=== PATIENT | female | born 1995 | race Caucasian/White ===

== ENCOUNTER 2023-02-01 12:51 | Emergency (ER) | payer OTHER, SELFPAY ==
--- NOTE | 2023-02-01 13:08 | ED.URI ---
HPI - URI/Sore Throat General Chief Complaint: Upper Respiratory Infection Stated Complaint: COLD SYMPTOMS/SOB/TIRED/NEEDS DOCTORS NOTE Time Seen by Provider: 02/01/23 13:08 Source: patient Mode of arrival: ambulatory Limitations: no limitations History of Present Illness HPI Narrative: 27-year-old female presents with complaint of nasal congestion, cough, headache, fatigue, low-grade fever for the past 3 days. Afebrile today. States she went back to work and felt fatigued, when did and dizzy when bending over. No dizziness at this time. States she has taken 2 days of work and feels that she needs more days off for her health but her work told her she needed a work note if she was going to miss more days. Patient well-appearing and talkative. No respiratory distress. Taking [id number] DayQuil to treat her symptoms. Patient had negative home COVID test. All systems reviewed and negative except as noted above. Related Data Home Medications Medication Instructions Recorded Confirmed amitriptyline 10 mg tablet 10 mg PO DAILY 02/01/23 02/01/23 escitalopram oxalate 5 mg tablet 5 mg PO DAILY 02/01/23 02/01/23 magnesium oxide 250 mg PO DAILY 02/01/23 02/01/23 sumatriptan succinate 50 mg tablet 50 mg PO PRN PRN Headache 02/01/23 02/01/23 Allergies Allergy/AdvReac Type Severity Reaction Status Date / Time Sulfa (Sulfonamide Allergy Rash Verified 02/01/23 13:11 Antibiotics) metronidazole AdvReac Gastrointestinal Verified 02/01/23 13:11 Upset Review of Systems Review of Systems: CONSTITUTIONAL: Denies fever, chills, or sweats. EYES: Denies visual changes, redness, or discharge. ENT: Reports rhinorrhea, congestion. Denies sore throat, or otalgia. CARDIOVASCULAR: Denies chest pain, palpitations, or edema. RESPIRATORY: Reports cough. Denies dyspnea. GASTROINTESTINAL: Denies abdominal pain, nausea, vomiting, or diarrhea. GENITOURINARY: Denies dysuria or hematuria. SKIN: Denies rash or itching. MUSCULOSKELETAL: Denies back pain, joint pain, or myalgia. NEUROLOGIC: Denies headache, numbness, or weakness. PSYCHIATRIC: Denies anxiety or depression. All other systems reviewed are negative, except as documented in HPI. PMFSH Comments At time of signature, agree with nursing past medical, surgical, social and family history. There is no relevant family history pertinent to the presenting complaint. Exam Narrative: GENERAL: This is a well-nourished, well-developed patient, in no apparent distress. HEAD: normocephalic, atraumatic. EYES: PERRL. Sclera clear/white. Vision is grossly intact. EARS: External ears normal, auditory canals clear and without drainage, TMs normal without perforation. Hearing grossly intact. NOSE: External nose normal with clear nasal drainage, erythema to both nares without swelling. THROAT: Mucous membranes moist, posterior pharynx clear. NECK: Neck supple, non-tender without lymphadenopathy, masses or thyromegaly. CARDIOVASCULAR: Regular rate and rhythm without murmurs, gallops, or rubs. RESPIRATORY: Clear to auscultation. Breath sounds equal bilaterally. No wheezes, rales, or rhonchi. SKIN: warm, Dry, intact with no suspicious lesions or rash, good texture and turgor. NEURO: awake, alert, and oriented to person, place and time. There were no obvious focal neurologic abnormalities. EXTREMITIES: No joint tenderness, effusion, or edema noted. Course Course Level of Care: Express Care Visit Vital Signs Vital signs: Reviewed MDM - URI/Sore Throat MDM Narrative Medical decision making narrative: Patient is aware of diagnosis, understands and agrees to treatment plan. Anticipatory guidance given. Patient agrees to follow-up as directed and is aware of reasons to seek care at the emergency department. Portions of this record may have been created with voice recognition software Differential Diagnosis Differential diagnosis: Likely upper respiratory infection and viral infe
[2023-02-01 13:10] VITALS: BP 110/79; PULSE 68; RESP 16; TEMP 36.7; O2SAT 100
== END 2023-02-01 13:20 | disposition home or self-care (01) ==
PROVIDERS: Emergency Provider Nurse Practitioner Family; PCP Internal Medicine
DX: J06.9 Acute upper respiratory infection, unspecified (principal); Q79.60 Ehlers-Danlos syndrome, unspecified; F41.9 Anxiety disorder, unspecified
CPT/HCPCS: 99211; G0463

== ENCOUNTER 2023-06-08 09:45 | Outpatient (CLI) | payer OTHER, SELFPAY ==
--- NOTE | ~2023-06-08 | US_ITS ---
EXAMINATION: US breast LT limited HISTORY: Left nipple inversion TECHNIQUE: Limited ultrasound is performed in the subareolar aspect of the left breast. FINDINGS: No suspicious cystic or solid mass is identified. No sonographic correlate is seen for the patient's left nipple inversion. IMPRESSION: No specific sonographic correlate is identified for the patient's left nipple inversion. Further eval uation at this time should be based on clinical assessment. Continued follow-up physical examination is recommended. BI-RADS Category 1: Negative Reviewed, dictated and finalized at location A. RVISOR TUMBLING AND ROLLING IMPRESSION: No specific sonographic correlate is identified for the patient's left nipple i nversion. Further evaluation at this time should be based on clinical assessmen t. Continued follow-up physical examination is recommended. BI-RADS Category 1: Negative
== END 2023-06-08 09:46 | disposition home or self-care (01) ==
LOC: ANHIMG 09:46
PROVIDERS: PCP Internal Medicine; Visit Provider Physician Assistant Surgical
DX: N64.59 Other signs and symptoms in breast (principal)
CPT/HCPCS: 76642

== ENCOUNTER 2023-06-09 06:59 | Outpatient (CLI) | payer OTHER, SELFPAY | END 2023-06-09 07:00 | disposition home or self-care (01) | PROVIDERS: PCP Internal Medicine; Visit Provider Internal Medicine | DX: R51.9 Headache, unspecified (principal); H55.00 Unspecified nystagmus | CPT/HCPCS: 99199 ==

== ENCOUNTER 2023-06-21 06:50 | Outpatient (CLI) | payer OTHER, SELFPAY ==
--- NOTE | ~2023-06-21 | MR_ITS ---
MRI of the brain Clinical History: Headache Technique: Axial and sagittal T1-weighted images were acquired. These were followed by axial T2-weigh mendez, diffusion weighted, gradient, and FLAIR images. Findings: No abnormal signal seen in the brain parenchyma. No acute infarct, intracranial hemorrhage, or mass lesion. Ventricles and subarachnoid spaces are unremarkable. Orbits are unremarkable. Paranasal sinuses and m astoid air cells are clear. Major intracranial flow voids appear to be intact. Sagittal midline structures are intact. IMPRESSION: No significant abnormality seen. Reviewed, dictated and finalized at location M. CAL BILLING MANAGER
== END 2023-06-21 06:51 | disposition home or self-care (01) ==
LOC: CHSIMG 06:51
PROVIDERS: PCP Internal Medicine; Visit Provider Internal Medicine
DX: R51.9 Headache, unspecified (principal); H55.00 Unspecified nystagmus
CPT/HCPCS: 70551

== ENCOUNTER 2023-08-21 09:47 | Outpatient (CLI) | payer OTHER, SELFPAY ==
--- NOTE | ~2023-08-21 | MR_ITS ---
EXAMINATION: MR breast BI wo/w con INDICATION: Left nipple inversion and intermittent bilateral nipple discharge TECHNIQUE: Axial VIBRANT pre and dynamic post contrast, Sagittal VIBRANT post contrast, Axial T2 STIR ASSET COMPARISON: Left breast ultrasound dated 06/08/2023 CONTRAST: Multihance, 11 cc BREAST COMPOSITION: Extreme fibroglandular tissue FINDINGS: RIGHT BREAST: There is marked background parenchymal enhancement. No abnormal enhancement is present after contrast administration. No pathologically enlarged axillary or internal mammary lymph nodes ar e identified. No MRI correlate is identified for the patient's reported nipple discharge. LEFT BREAST: There is marked background parenchymal enhancement. No abnormal enhancement is present a fter contrast administration. No pathologically enlarged axillary or internal mammary lymph nodes are identified. No MRI correlate is identified for the patient's reported nipple discharge. IMPRESSION: 1. No MRI correlate is identified for the patient's reported nipple discharge. BI-RADS Category 1: Negative Reviewed, dictated and finalized at location A. EMS SECURITY CONSULTANT
== END 2023-08-21 09:48 | disposition home or self-care (01) ==
LOC: ANHIMG 09:48
PROVIDERS: PCP Internal Medicine; Visit Provider Surgery
DX: N64.59 Other signs and symptoms in breast (principal); N64.52 Nipple discharge
CPT/HCPCS: 77049; A9577; C8908

== ENCOUNTER 2024-10-17 08:21 | Outpatient (CLI) | payer BC, SELFPAY ==
--- NOTE | ~2024-10-17 | US_ITS ---
Limited Abdominal Sonogram: Real-time sonographic imaging of the right upper quadrant was performed. Clinical History: Right upper quadrant pain Findings: The liver appears normal with no evidence of mass lesion or bile duct dilatation. Main por dariel vein demonstrates normal direction of flow. The gallbladder is well distended, and appears normal with no evidence of gallstone or wall thickening. The common bile duct measures 2 mm. The visualize d pancreas, aorta, and IVC are unremarkable. Impression: No significant abnormality seen. Reviewed, dictated and finalized at location M. Impression: No significant abnormality seen.
--- OUTSIDE RECORDS SUMMARY | 2024-10-17 08:31 | XMS_ITS | CCD ---
Author Name Interface, [id number] [place] [address] [facility] [place] [address] Care Team Providers Care Supervisor Mail Carriers Name Role Phone Willie Chamberlain Unavailable Unavailable Reason for Visit Functional Status Date Name Score 01/30/2018 Karnofsky performance status 100 01/29/2015 Karnofsky performance status 100 Medications Date Name Route Dose Frequency Instructions Start Date End Date Status 5 Sumatriptan Oral PO 1.0 TABLET(S ) PRN 5 active Problems Diagnosis Status Date of Diagnosi s Gastroesophageal reflux disease (disorder) Activ e Work-up, hem/onc Active Fatigue (finding) Active Migraine (disorder) Active Anxiety (finding) Active Vitamin D deficiency (disorder) Active Abnormal perimenopausal bleeding (disorder) Acti ve Hypertrophic gastritis (disorder) Inactive Social History Date Name Value Sex Female
--- OUTSIDE RECORDS SUMMARY | 2024-10-17 08:32 | XMS_ITS | Patient Health Record ---
Author Organization [facility] As [employer] [facility] Address [address] [facility] [address] [place] [address] Care Team Providers Care Can Maker Name Role Phone Jasmin NICHOLE, [facility] Primary Care Provider Unavaila brendan Albright Thenrony Unavailable [phone] [place] Yusuf Unavailable [phone] Yuki Bernal Unavailable [phone] Migration, Provider Unavailable Unavailable Allergies Allergen (clinical drug ingredient) Drug/Non Drug Allergy documented on EMR Reaction Allergy Type Onset Date Status Substance with sulfonamide structure and antibacterial mechanism of action (substance) SULFA (SULFONAMIDE ANTIBIOTICS) (uncoded) Unknown Allergy 11/08/2023 Active Results Component Value Reference Range Notes UDT Reviewed date:10/06/2024 11:22:20 AM Interpretation: Performing Lab: Notes/Report: THC N 0 - 50 ng/ml Cocaine N 0 - 300 ng/ml Amphetamine N 0 - 1000 ng/ml Buprenorphine (BUP) N 0 - 10 ng/ml Secobarbital (Bar) N 0 - 300 ng/ml Oxazepam (BZO) N 0 - 300 ng/ml 6-gfunwbyyca-3,3-murrrxgh-8,3-diphenylpyrrolidine (THU P) N 0 - 300 ng/ml Methamphetamine (MET) N 0 - 1000 ng/ml Methylenedioxymethamphetamine (MDMA) N 0 - 500 ng/ml Morphine (MOP 300/[id number]) N 0 - 300 ng/ml Methadone (MTD) N 0 - 300 ng/ml Phencyclidine (PCP) N 0 - 25 ng/ml Nortriptyline (TCA) N 0 - 1000 ng/ml Oxycodone N 0 - 300 ng/ml x N 0 - 300 ng/ml Reason For Referral No Information Medications Medication SIG (Take, Route, Frequency, Duration) Notes Start Date End Date Status hydrOXYzine HCl 25 MG Oral 11/08/2023 Active MAGNESIUM 250 MG ( MAGNESIUM OXIDE) TABLET *Reorder from [employer] for eRx and Interaction Alerts* 11/08/2023 Active Ondansetron 4 MG 1 tablet on the tongue and allow to dissolve Orally Once a day for 30 days As needed Active Amphetamine-Dextroamp hetamine 5 MG 1 tablet Oral Twice a day for 30 days 10/06/2024 Active Amitriptyline HCl 10 MG 1 tablet at bedtime Orally Once a day for 90 days 02/27/2024 Active SUMAtriptan Succinate 50 MG Oral 11/08/2023 Active Escitalopram Oxalate 10 MG 1 tablet Orally Once a day for 90 days Active Social History Tobacco Use: Social History Observation Description Date Details (start date - stop date) Never Smoker NA - NA Sex Assigned At : Social History Observation Description Sex Assigned At Female Tobacco Control (Standard) Question Answer Notes Tobacco use: Nonsmoker Problems Problem Type SNOMED Code ICD Code Onset Dates Problem Status W/U Status Risk Notes Problem Generalized anxiety disorder (02883381) Generalized anxiety disorder (F41.1) Active confirmed Problem Pervasive developmental disorder (disorder) (79600152) Autistic disorder (F84.0) Active confirmed Problem Attention deficit hyperactivity disorder, predominantly inattentive type (55755987) Attention-deficit hyperactivity disorder, predominantly inattentive type (F90.0) Active confirmed Problem Obsessive-compuls jacob disorder (151597782) Obsessive-compuls jacob disorder, unspecified (F42.9) Active confirmed Problem Autism spectrum disorder (86201188) Autism spectrum disorder (F84.0) Active confirmed Problem Recurrent major depressive episodes, moderate (694308414) Recurrent major depressive episodes, moderate (F33.1) Active confirmed Problem Obsessive-compuls jacob disorder (095840721) OCD (obsessive compulsive disorder) (F42.9) Active confirmed Vital Signs Heart Rate 100 /min 10/06/2024 Blood pressure diastolic 71 mm Hg 10/06/2024 Height-cm 167.64 cm 10/06/2024 Weight-kg 54.43 kg 10/06/2024 Height 66.00 in 10/06/2024 Blood pressure systolic 117 mm Hg 10/06/2024 Weight 120 lbs 10/06/2024 BMI 19.37 kg/m2 10/06/2024 Encounters Encounter Location Date Provider Diagnosis [facility] [address] [address] 11/08/2023 Thena Jose Ramon Obsessive-compulsive disorder, unspecified F42.9 ; Attention-deficit hyperactivity disorder, predominantly inattentive type F90.0 and Autistic disorder F84.0 [facility] [address] [address] 11/19/2023 Yusuf Burris Obsessive-compulsive disorder, unspecified F42.9 and Autistic disorder F84.0 [facility] [address] [address] 01/07/2024 Yusuf Burris Anxiety F41.9 and Obsessive-compulsive disorder, unspecified F42.9 [facility] [address] [address] 01/28/2024 Yusuf Burris OCD (obsessive compulsive disorder) F42.9 and Anxiety disorder, unspecified type F41.9 [facility] [address] [address] 02/19/2024 Yusuf Burris Generalized anxiety disorder F41.1 ; OCD (obsessive compulsive disorder) F42.9 and Recurrent major depressive episodes, moderate F33.1 [facility] [address] [address] 02/27/2024 Thena Jose Ramon Obsessive-compulsive disorder, unspecified F42.9 ; Autistic disorder F84.0 ; Attention-deficit hyperactivity disorder, predominantly inattentive type F90.0 and Generalized anxiety disorder F41.1 [facility] [address] [address] 03/13/2024 Yusuf Burris Generalized anxiety disorder F41.1 ; Obsessive-compulsive disorder, unspecified F42.9 and Recurrent major depressive episodes, moderate F33.1 [facility] [address] [address] 04/03/2024 Yusuf Burris Generalized anxiety disorder F41.1 ; Obsessive-compulsive disorder F42.9 and Recurrent major depressive episodes, moderate F33.[address] [facility] [address] [place] [address] 06/26/2024 Thena Jose Ramon Generalized anxiety disorder F41.1 ; Obsessive-compulsive disorder, unspecified F42.9 ; Autism spectrum disorder F84.0 ; Attention-deficit hyperactivity disorder, predominantly inattentive type F90.0 and Recurrent major depressive episodes, moderate F33.[address] [address] 08/26/2024 Yusuf Burris Generalized anxiety disorder F41.1 ; Obsessive-compulsive disorder F42.9 and Recurrent major depressive episodes, moderate F33.[address] [address] 10/06/2024 Yuki Bernal OCD (obsessive compulsive disorder) F42.9 ; Attention-deficit hyperactivity disorder, predominantly inattentive type F90.0 ; Recurrent major depressive episodes, moderate F33.1 ; Encounter for screening for depression Z13.31 ; Generalized anxiety disorder F41.1 ; Nausea R11.0 and Encounter for screening for cardiovascular disorders Z13.[address] [address] 11/24/2023 Provider Migration [address] [address] 11/25/2023 Provider Migration [address] [address] 02/18/2024 Yuki Bernal [place] [address] [address] [facility] [address] [address] 04/04/2024 Thena Jose Ramon Obsessive-compulsive disorder, unspecified F42.[address] [address] 12/18/2023 Thena Jose Ramon Assessments Encounter Date Diagnosis (ICD Code) Assessment Notes Treatment Notes Treatment Clinical Notes Section Notes 02/27/2024 Obsessive-compul sive disorder, unspecified (ICD-10 - F42.9) 06/26/2024 Generalized anxiety disorder (ICD-10 - F41.1) 06/26/2024 Obsessive-compul sive disorder, unspecified (ICD-10 - F42.9) 04/03/2024 Generalized anxiety disorder (ICD-10 - F41.1) 27 year old single never female seen today for initial assessment to start therapy. Client has seen Dr Albright twice for medication therapy. Noted that she has a hx of anxiety and was recently diagnosed with Autism and ADHD. Believes she has suffered from anxiety for as long as she can recall but diagnosed at the age of 19. Client when asked what she worries the most about stated; my future in general, will I be able to work in this economy, and my health . Hx of panic attacks denied by client who stated that she also has a hx of mild recurrent depression which she believes is a result of anxiety and Autism. Noted that she has a hx of meltdowns during which time she hits self. Depression symptoms include; lack of motivation to do things, feeling like a failure, passive suicidal thoughts(plan and intent denied). Stated she last had thoughts 6 months ago before she started taking Lexapro. No psych admissions reported but added she has been to out patient psychotherapy(E MDR) at the age of 22 for 9 months. Believes therapy was very helpful in the past. Family hx is positive for depression(moth er) and Schizophrenia(m aternal uncle).Client was born in [place], [place] and grew in that area until the age of 13. Moved and lived in this area from the ages of 13 to 19. Moved to [place] to attend college and returned to this area afte college. Described childhood as unstable and disrupted by parent's divorce when she was 13 years old. Client added that she was an introvert and an only child. Noted that parents due to mother having had an affair and being emotionally unstable. Relationship with mother is close in spite of how mother treated her growing up. Relationship with father has gotten better the older father has become. 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 04/03/2024 Obsessive-compul sive disorder (ICD-10 - F42.9) 27 year old single never female seen today for initial assessment to start therapy. Client has seen Dr Albright twice for medication therapy. Noted that she has a hx of anxiety and was recently diagnosed with Autism and ADHD. Believes she has suffered from anxiety for as long as she can recall but diagnosed at the age of 19. Client when asked what she worries the most about stated; my future in general, will I be able to work in this economy, and my health . Hx of panic attacks denied by client who stated that she also has a hx of mild recurrent depression which she believes is a result of anxiety and Autism. Noted that she has a hx of meltdowns during which time she hits self. Depression symptoms include; lack of motivation to do things, feeling like a failure, passive suicidal thoughts(plan and intent denied). Stated she last had thoughts 6 months ago before she started taking Lexapro. No psych admissions reported but added she has been to out patient psychotherapy(E MDR) at the age of 22 for 9 months. Believes therapy was very helpful in the past. Family hx is positive for depression(carlee er) and Schizophrenia(m aternal uncle).Client was born in [place], [place] and grew in that area until the age of 13. Moved and lived in this area from the ages of 13 to 19. Moved to [place] to attend college and returned to this area afte college. Described childhood as unstable and disrupted by parent's divorce when she was 13 years old. Client added that she was an introvert and an only child. Noted that parents due to mother having had an affair and being emotionally unstable. Relationship with mother is close in spite of how mother treated her growing up. Relationship with father has gotten better the older father has become. 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 03/13/2024 Generalized anxiety disorder (ICD-10 - F41.1) 27 year old single never female seen today for initial assessment to start therapy. Client has seen Dr Albright twice for medication therapy. Noted that she has a hx of anxiety and was recently diagnosed with Autism and ADHD. Believes she has suffered from anxiety for as long as she can recall but diagnosed at the age of 19. Client when asked what she worries the most about stated; my future in general, will I be able to work in this economy, and my health . Hx of panic attacks denied by client who stated that she also has a hx of mild recurrent depression which she believes is a result of anxiety and Autism. Noted that she has a hx of meltdowns during which time she hits self. Depression symptoms include; lack of motivation to do things, feeling like a failure, passive suicidal thoughts(plan and intent denied). Stated she last had thoughts 6 months ago before she started taking Lexapro. No psych admissions reported but added she has been to out patient psychotherapy(E MDR) at the age of 22 for 9 months. Believes therapy was very helpful in the past. Family hx is positive for depression(moth er) and Schizophrenia(m aternal uncle).Client was born in [place], [place] and grew in that area until the age of 13. Moved and lived in this area from the ages of 13 to 19. Moved to [place] to attend college and returned to this area afte college. Described childhood as unstable and disrupted by parent's divorce when she was 13 years old. Client added that she was an introvert and an only child. Noted that parents due to mother having had an affair and being emotionally unstable. Relationship with mother is close in spite of how mother treated her growing up. Relationship with father has gotten better the older father has become. 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 03/13/2024 Obsessive-compul sive disorder, unspecified (ICD-10 - F42.9) 27 year old single never female seen today for initial assessment to start therapy. Client has seen Dr Albright twice for medication therapy. Noted that she has a hx of anxiety and was recently diagnosed with Autism and ADHD. Believes she has suffered from anxiety for as long as she can recall but diagnosed at the age of 19. Client when asked what she worries the most about stated; my future in general, will I be able to work in this economy, and my health . Hx of panic attacks denied by client who stated that she also has a hx of mild recurrent depression which she believes is a result of anxiety and Autism. Noted that she has a hx of meltdowns during which time she hits self. Depression symptoms include; lack of motivation to do things, feeling like a failure, passive suicidal thoughts(plan and intent denied). Stated she last had thoughts 6 months ago before she started taking Lexapro. No psych admissions reported but added she has been to out patient psychotherapy(E MDR) at the age of 22 for 9 months. Believes therapy was very helpful in the past. Family hx is positive for depression(moth er) and Schizophrenia(m aternal uncle).Client was born in [place], [place] and grew in that area until the age of 13. Moved and lived in this area from the ages of 13 to 19. Moved to [place] to attend college and returned to this area afte college. Described childhood as unstable and disrupted by parent's divorce when she was 13 years old. Client added that she was an introvert and an only child. Noted that parents due to mother having had an affair and being emotionally unstable. Relationship with mother is close in spite of how mother treated her growing up. Relationship with father has gotten better the older father has become. 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 02/19/2024 OCD (obsessive compulsive disorder) (ICD-10 - F42.9) 27 year old single never female seen today for initial assessment to start therapy. Client has seen Dr Albright twice for medication therapy. Noted that she has a hx of anxiety and was recently diagnosed with Autism and ADHD. Believes she has suffered from anxiety for as long as she can recall but diagnosed at the age of 19. Client when asked what she worries the most about stated; my future in general, will I be able to work in this economy, and my health . Hx of panic attacks denied by client who stated that she also has a hx of mild recurrent depression which she believes is a result of anxiety and Autism. Noted that she has a hx of meltdowns during which time she hits self. Depression symptoms include; lack of motivation to do things, feeling like a failure, passive suicidal thoughts(plan and intent denied). Stated she last had thoughts 6 months ago before she started taking Lexapro. No psych admissions reported but added she has been to out patient psychotherapy(E MDR) at the age of 22 for 9 months. Believes therapy was very helpful in the past. Family hx is positive for depression(moth er) and Schizophrenia(m aternal uncle).Client was born in [place], [place] and grew in that area until the age of 13. Moved and lived in this area from the ages of 13 to 19. Moved to [place] to attend college and returned to this area afte college. Described childhood as unstable and disrupted by parent's divorce when she was 13 years old. Client added that she was an introvert and an only child. Noted that parents due to mother having had an affair and being emotionally unstable. Relationship with mother is close in spite of how mother treated her growing up. Relationship with father has gotten better the older father has become. 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 02/27/2024 Autistic disorder (ICD-10 - F84.0) 08/26/2024 Generalized anxiety disorder (ICD-10 - F41.1) 27 year old single never female seen today for initial assessment to start therapy. Client has seen Dr Albright twice for medication therapy. Noted that she has a hx of anxiety and was recently diagnosed with Autism and ADHD. Believes she has suffered from anxiety for as long as she can recall but diagnosed at the age of 19. Client when asked what she worries the most about stated; my future in general, will I be able to work in this economy, and my health . Hx of panic attacks denied by client who stated that she also has a hx of mild recurrent depression which she believes is a result of anxiety and Autism. Noted that she has a hx of meltdowns during which time she hits self. Depression symptoms include; lack of motivation to do things, feeling like a failure, passive suicidal thoughts(plan and intent denied). Stated she last had thoughts 6 months ago before she started taking Lexapro. No psych admissions reported but added she has been to out patient psychotherapy(E MDR) at the age of 22 for 9 months. Believes therapy was very helpful in the past. Family hx is positive for depression(moth er) and Schizophrenia(m aternal uncle).Client was born in [place], [place] and grew in that area until the age of 13. Moved and lived in this area from the ages of 13 to 19. Moved to [place] to attend college and returned to this area afte college. Described childhood as unstable and disrupted by parent's divorce when she was 13 years old. Client added that she was an introvert and an only child. Noted that parents due to mother having had an affair and being emotionally unstable. Relationship with mother is close in spite of how mother treated her growing up. Relationship with father has gotten better the older father has become. 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 08/26/2024 Obsessive-compul sive disorder (ICD-10 - F42.9) 27 year old single never female seen today for initial assessment to start therapy. Client has seen Dr Albright twice for medication therapy. Noted that she has a hx of anxiety and was recently diagnosed with Autism and ADHD. Believes she has suffered from anxiety for as long as she can recall but diagnosed at the age of 19. Client when asked what she worries the most about stated; my future in general, will I be able to work in this economy, and my health . Hx of panic attacks denied by client who stated that she also has a hx of mild recurrent depression which she believes is a result of anxiety and Autism. Noted that she has a hx of meltdowns during which time she hits self. Depression symptoms include; lack of motivation to do things, feeling like a failure, passive suicidal thoughts(plan and intent denied). Stated she last had thoughts 6 months ago before she started taking Lexapro. No psych admissions reported but added she has been to out patient psychotherapy(E MDR) at the age of 22 for 9 months. Believes therapy was very helpful in the past. Family hx is positive for depression(moth er) and Schizophrenia(m aternal uncle).Client was born in [place], [place] and grew in that area until the age of 13. Moved and lived in this area from the ages of 13 to 19. Moved to [place] to attend college and returned to this area afte college. Described childhood as unstable and disrupted by parent's divorce when she was 13 years old. Client added that she was an introvert and an only child. Noted that parents due to mother having had an affair and being emotionally unstable. Relationship with mother is close in spite of how mother treated her growing up. Relationship with father has gotten better the older father has become. 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 10/06/2024 Attention-defici t hyperactivity disorder, predominantly inattentive type (ICD-10 - F90.0) 10/06/2024 OCD (obsessive compulsive disorder) (ICD-10 - F42.9) 11/08/2023 Autistic disorder (ICD-10 - F84.0) 11/08/2023 Attention-defici t hyperactivity disorder, predominantly inattentive type (ICD-10 - F90.0) 11/08/2023 Obsessive-compul sive disorder, unspecified (ICD-10 - F42.9) 11/19/2023 Autistic disorder (ICD-10 - F84.0) 11/19/2023 Obsessive-compul sive disorder, unspecified (ICD-10 - F42.9) 01/07/2024 Obsessive-compul sive disorder, unspecified (ICD-10 - F42.9) 27 year old single never female seen today for initial assessment to start therapy. Client has seen Dr Albright twice for medication therapy. Noted that she has a hx of anxiety and was recently diagnosed with Autism and ADHD. Believes she has suffered from anxiety for as long as she can recall but diagnosed at the age of 19. Client when asked what she worries the most about stated; my future in general, will I be able to work in this economy, and my health . Hx of panic attacks denied by client who stated that she also has a hx of mild recurrent depression which she believes is a result of anxiety and Autism. Noted that she has a hx of meltdowns during which time she hits self. Depression symptoms include; lack of motivation to do things, feeling like a failure, passive suicidal thoughts(plan and intent denied). Stated she last had thoughts 6 months ago before she started taking Lexapro. No psych admissions reported but added she has been to out patient psychotherapy(E MDR) at the age of 22 for 9 months. Believes therapy was very helpful in the past. Family hx is positive for depression(moth er) and Schizophrenia(m aternal uncle). Client was born in [place], [place] and grew in that area until the age of 13. Moved and lived in this area from the ages of 13 to 19. Moved to [place] to attend college and returned to this area afte college. Described childhood as unstable and disrupted by parent's divorce when she was 13 years old. Client added that she was an introvert and an only child. Noted that parents due to mother having had an affair and being emotionally unstable. Relationship with mother is close in spite of how mother treated her growing up. Relationship with father has gotten better the older father has become. 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 Client has seen Dr Albright twice for medication therapy. Noted that she has a hx of anxiety and was recently diagnosed with Autism and ADHD. Believes she has suffered from anxiety for as long as she can recall but diagnosed at the age of 19. Client when asked what she worries the most about stated; my future in general, will I be able to work in this economy, and my health . Hx of panic attacks denied by client who stated that she also has a hx of mild recurrent depression which she believes is a result of anxiety and Autism. Noted that she has a hx of meltdowns during which time she hits self. Depression symptoms include; lack of motivation to do things, feeling like a failure, passive suicidal thoughts(plan and intent denied). Stated she last had thoughts 6 months ago before she started taking Lexapro. No psych admissions reported but added she has been to out patient psychotherapy(E MDR) at the age of 22 for 9 months. Believes therapy was very helpful in the past. Family hx is positive for depression(carlee er) and Schizophrenia(m aternal uncle). Client was born in [place], [place] and grew in that area until the age of 13. Moved and lived in this area from the ages of 13 to 19. Moved to [place] to attend college and returned to this area afte college. Described childhood as unstable and disrupted by parent's divorce when she was 13 years old. Client added that she was an introvert and an only child. Noted that parents due to mother having had an affair and being emotionally unstable. Relationship with mother is close in spite of how mother treated her growing up. Relationship with father has gotten better the older father has become. 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 Client has seen Dr Albright twice for medication therapy. Noted that she has a hx of anxiety and was recently diagnosed with Autism and ADHD. Believes she has suffered from anxiety for as long as she can recall but diagnosed at the age of 19. Client when asked what she worries the most about stated; my future in general, will I be able to work in this economy, and my health . Hx of panic attacks denied by client who stated that she also has a hx of mild recurrent depression which she believes is a result of anxiety and Autism. Noted that she has a hx of meltdowns during which time she hits self. Depression symptoms include; lack of motivation to do things, feeling like a failure, passive suicidal thoughts(plan and intent denied). Stated she last had thoughts 6 months ago before she started taking Lexapro. No psych admissions reported but added she has been to out patient psychotherapy(E MDR) at the age of 22 for 9 months. Believes therapy was very helpful in the past. Family hx is positive for depression(moth er) and Schizophrenia(m aternal uncle).Client was born in [place], [place] and grew in that area until the age of 13. Moved and lived in this area from the ages of 13 to 19. Moved to [place] to attend college and returned to this area afte college. Described childhood as unstable and disrupted by parent's divorce when she was 13 years old. Client added that she was an introvert and an only child. Noted that parents due to mother having had an affair and being emotionally unstable. Relationship with mother is close in spite of how mother treated her growing up. Relationship with father has gotten better the older father has become. 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 01/28/2024 OCD (obsessive compulsive disorder) (ICD-10 - F42.9) 27 year old single never female seen today for initial assessment to start therapy. Client has seen Dr Albright twice for medication therapy. Noted that she has a hx of anxiety and was recently diagnosed with Autism and ADHD. Believes she has suffered from anxiety for as long as she can recall but diagnosed at the age of 19. Client when asked what she worries the most about stated; my future in general, will I be able to work in this economy, and my health . Hx of panic attacks denied by client who stated that she also has a hx of mild recurrent depression which she believes is a result of anxiety and Autism. Noted that she has a hx of meltdowns during which time she hits self. Depression symptoms include; lack of motivation to do things, feeling like a failure, passive suicidal thoughts(plan and intent denied). Stated she last had thoughts 6 months ago before she started taking Lexapro. No psych admissions reported but added she has been to out patient psychotherapy(E MDR) at the age of 22 for 9 months. Believes therapy was very helpful in the past. Family hx is positive for depression(moth er) and Schizophrenia(m aternal uncle).Client was born in [place], [place] and grew in that area until the age of 13. Moved and lived in this area from the ages of 13 to 19. Moved to [place] to attend college and returned to this area afte college. Described childhood as unstable and disrupted by parent's divorce when she was 13 years old. Client added that she was an introvert and an only child. Noted that parents due to mother having had an affair and being emotionally unstable. Relationship with mother is close in spite of how mother treated her growing up. Relationship with father has gotten better the older father has become. 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 02/19/2024 Generalized anxiety disorder (ICD-10 - F41.1) 27 year old single never female seen today for initial assessment to start therapy. Client has seen Dr Albright twice for medication therapy. Noted that she has a hx of anxiety and was recently diagnosed with Autism and ADHD. Believes she has suffered from anxiety for as long as she can recall but diagnosed at the age of 19. Client when asked what she worries the most about stated; my future in general, will I be able to work in this economy, and my health . Hx of panic attacks denied by client who stated that she also has a hx of mild recurrent depression which she believes is a result of anxiety and Autism. Noted that she has a hx of meltdowns during which time she hits self. Depression symptoms include; lack of motivation to do things, feeling like a failure, passive suicidal thoughts(plan and intent denied). Stated she last had thoughts 6 months ago before she started taking Lexapro. No psych admissions reported but added she has been to out patient psychotherapy(E MDR) at the age of 22 for 9 months. Believes therapy was very helpful in the past. Family hx is positive for depression(moth er) and Schizophrenia(m aternal uncle).Client was born in [place], [place] and grew in that area until the age of 13. Moved and lived in this area from the ages of 13 to 19. Moved to [place] to attend college and returned to this area afte college. Described childhood as unstable and disrupted by parent's divorce when she was 13 years old. Client added that she was an introvert and an only child. Noted that parents due to mother having had an affair and being emotionally unstable. Relationship with mother is close in spite of how mother treated her growing up. Relationship with father has gotten better the older father has become. 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 02/19/2024 Recurrent major depressive episodes, moderate (ICD-10 - F33.1) 27 year old single never female seen today for initial assessment to start therapy. Client has seen Dr Albright twice for medication therapy. Noted that she has a hx of anxiety and was recently diagnosed with Autism and ADHD. Believes she has suffered from anxiety for as long as she can recall but diagnosed at the age of 19. Client when asked what she worries the most about stated; my future in general, will I be able to work in this economy, and my health . Hx of panic attacks denied by client who stated that she also has a hx of mild recurrent depression which she believes is a result of anxiety and Autism. Noted that she has a hx of meltdowns during which time she hits self. Depression symptoms include; lack of motivation to do things, feeling like a failure, passive suicidal thoughts(plan and intent denied). Stated she last had thoughts 6 months ago before she started taking Lexapro. No psych admissions reported but added she has been to out patient psychotherapy(E MDR) at the age of 22 for 9 months. Believes therapy was very helpful in the past. Family hx is positive for depression(moth er) and Schizophrenia(m aternal uncle).Client was born in [place], [place] and grew in that area until the age of 13. Moved and lived in this area from the ages of 13 to 19. Moved to [place] to attend college and returned to this area afte college. Described childhood as unstable and disrupted by parent's divorce when she was 13 years old. Client added that she was an introvert and an only child. Noted that parents due to mother having had an affair and being emotionally unstable. Relationship with mother is close in spite of how mother treated her growing up. Relationship with father has gotten better the older father has become. 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 10/06/2024 Recurrent major depressive episodes, moderate (ICD-10 - F33.1) 08/26/2024 Recurrent major depressive episodes, moderate (ICD-10 - F33.1) 27 year old single never female seen today for initial assessment to start therapy. Client has seen Dr Albright twice for medication therapy. Noted that she has a hx of anxiety and was recently diagnosed with Autism and ADHD. Believes she has suffered from anxiety for as long as she can recall but diagnosed at the age of 19. Client when asked what she worries the most about stated; my future in general, will I be able to work in this economy, and my health . Hx of panic attacks denied by client who stated that she also has a hx of mild recurrent depression which she believes is a result of anxiety and Autism. Noted that she has a hx of meltdowns during which time she hits self. Depression symptoms include; lack of motivation to do things, feeling like a failure, passive suicidal thoughts(plan and intent denied). Stated she last had thoughts 6 months ago before she started taking Lexapro. No psych admissions reported but added she has been to out patient psychotherapy(E MDR) at the age of 22 for 9 months. Believes therapy was very helpful in the past. Family hx is positive for depression(moth er) and Schizophrenia(m aternal uncle).Client was born in [place], [place] and grew in that area until the age of 13. Moved and lived in this area from the ages of 13 to 19. Moved to [place] to attend college and returned to this area afte college. Described childhood as unstable and disrupted by parent's divorce when she was 13 years old. Client added that she was an introvert and an only child. Noted that parents due to mother having had an affair and being emotionally unstable. Relationship with mother is close in spite of how mother treated her growing up. Relationship with father has gotten better the older father has become. 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 02/27/2024 Attention-defici t hyperactivity disorder, predominantly inattentive type (ICD-10 - F90.0) 03/13/2024 Recurrent major depressive episodes, moderate (ICD-10 - F33.1) 27 year old single never female seen today for initial assessment to start therapy. Client has seen Dr Albright twice for medication therapy. Noted that she has a hx of anxiety and was recently diagnosed with Autism and ADHD. Believes she has suffered from anxiety for as long as she can recall but diagnosed at the age of 19. Client when asked what she worries the most about stated; my future in general, will I be able to work in this economy, and my health . Hx of panic attacks denied by client who stated that she also has a hx of mild recurrent depression which she believes is a result of anxiety and Autism. Noted that she has a hx of meltdowns during which time she hits self. Depression symptoms include; lack of motivation to do things, feeling like a failure, passive suicidal thoughts(plan and intent denied). Stated she last had thoughts 6 months ago before she started taking Lexapro. No psych admissions reported but added she has been to out patient psychotherapy(E MDR) at the age of 22 for 9 months. Believes therapy was very helpful in the past. Family hx is positive for depression(moth er) and Schizophrenia(m aternal uncle).Client was born in [place], [place] and grew in that area until the age of 13. Moved and lived in this area from the ages of 13 to 19. Moved to [place] to attend college and returned to this area afte college. Described childhood as unstable and disrupted by parent's divorce when she was 13 years old. Client added that she was an introvert and an only child. Noted that parents due to mother having had an affair and being emotionally unstable. Relationship with mother is close in spite of how mother treated her growing up. Relationship with father has gotten better the older father has become. 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 04/04/2024 Obsessive-compul sive disorder, unspecified (ICD-10 - F42.9) 04/03/2024 Recurrent major depressive episodes, moderate (ICD-10 - F33.1) 27 year old single never female seen today for initial assessment to start therapy. Client has seen Dr Albright twice for medication therapy. Noted that she has a hx of anxiety and was recently diagnosed with Autism and ADHD. Believes she has suffered from anxiety for as long as she can recall but diagnosed at the age of 19. Client when asked what she worries the most about stated; my future in general, will I be able to work in this economy, and my health . Hx of panic attacks denied by client who stated that she also has a hx of mild recurrent depression which she believes is a result of anxiety and Autism. Noted that she has a hx of meltdowns during which time she hits self. Depression symptoms include; lack of motivation to do things, feeling like a failure, passive suicidal thoughts(plan and intent denied). Stated she last had thoughts 6 months ago before she started taking Lexapro. No psych admissions reported but added she has been to out patient psychotherapy(E MDR) at the age of 22 for 9 months. Believes therapy was very helpful in the past. Family hx is positive for depression(carlee er) and Schizophrenia(m aternal uncle).Client was born in [place], [place] and grew in that area until the age of 13. Moved and lived in this area from the ages of 13 to 19. Moved to [place] to attend college and returned to this area afte college. Described childhood as unstable and disrupted by parent's divorce when she was 13 years old. Client added that she was an introvert and an only child. Noted that parents due to mother having had an affair and being emotionally unstable. Relationship with mother is close in spite of how mother treated her growing up. Relationship with father has gotten better the older father has become. 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 06/26/2024 Autism spectrum disorder (ICD-10 - F84.0) 06/26/2024 Attention-defici t hyperactivity disorder, predominantly inattentive type (ICD-10 - F90.0) 02/27/2024 Generalized anxiety disorder (ICD-10 - F41.1) 10/06/2024 Encounter for screening for depression (ICD-10 - Z13.31) 10/06/2024 Generalized anxiety disorder (ICD-10 - F41.1) 06/26/2024 Recurrent major depressive episodes, moderate (ICD-10 - F33.1) 10/06/2024 Nausea (ICD-10 - R11.0) 10/06/2024 Encounter for screening for cardiovascular disorders (ICD-10 - Z13.6) 01/07/2024 Other Client participated in individual psychotherapy related to her hx of anxiety. Based on santa's session continued pyschotherapy is recommended with no changes to treatment plan. Client presented to session well groomed and fully oriented with no risk of harm to self or others. Client verbal and engaged through out session with approprirate mood and affect. Reported that she has been okay since last seen on 11.19.2023. Added that he was sick and had to cancel last scheduled session. Moreover has been stressed due to work and partner having lost her job. Session accordingly addressed client's relationship with control and certainty. Admitted that she has a hx of trying to control things beyond her control and does have a high need for certainty. Client receptive to session feedback and was provided handout entitled [employer] by Paramjit Orozco. Next session in two weeks. 27 year old single never female seen today for initial assessment to start therapy. Client has seen Dr Albright twice for medication therapy. Noted that she has a hx of anxiety and was recently diagnosed with Autism and ADHD. Believes she has suffered from anxiety for as long as she can recall but diagnosed at the age of 19. Client when asked what she worries the most about stated; my future in general, will I be able to work in this economy, and my health . Hx of panic attacks denied by client who stated that she also has a hx of mild recurrent depression which she believes is a result of anxiety and Autism. Noted that she has a hx of meltdowns during which time she hits self. Depression symptoms include; lack of motivation to do things, feeling like a failure, passive suicidal thoughts(plan and intent denied). Stated she last had thoughts 6 months ago before she started taking Lexapro. No psych admissions reported but added she has been to out patient psychotherapy(E MDR) at the age of 22 for 9 months. Believes therapy was very helpful in the past. Family hx is positive for depression(moth er) and Schizophrenia(m aternal uncle). Client was born in [place], [place] and grew in that area until the age of 13. Moved and lived in this area from the ages of 13 to 19. Moved to [place] to attend college and returned to this area afte college. Described childhood as unstable and disrupted by parent's divorce when she was 13 years old. Client added that she was an introvert and an only child. Noted that parents due to mother having had an affair and being emotionally unstable. Relationship with mother is close in spite of how mother treated her growing up. Relationship with father has gotten better the older father has become. 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 Based on today's session continued psychotherapy is recommended with no changes to treatment plan. Client presented to session well groomed and fully oriented with no risk of harm to self or others. Client verbal and engaged through out session. Reported upon presentation that she has been tired and sleep scheduled has been messed up as of late. Added that partner recently had a promising job interview and expects to hear something this week. 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 More money but not as flexible as her current position. Further shared that she has been stressing about up coming visit from partner's parents in March. Session addressed client's beliefs and thoughts which have supported and fueled anxiety. Client receptive to session feedback. Next session in three weeks. 27 year old single never female seen today for initial assessment to start therapy. Client has seen Dr Albright twice for medication therapy. Noted that she has a hx of anxiety and was recently diagnosed with Autism and ADHD. Believes she has suffered from anxiety for as long as she can recall but diagnosed at the age of 19. Client when asked what she worries the most about stated; my future in general, will I be able to work in this economy, and my health . Hx of panic attacks denied by client who stated that she also has a hx of mild recurrent depression which she believes is a result of anxiety and Autism. Noted that she has a hx of meltdowns during which time she hits self. Depression symptoms include; lack of motivation to do things, feeling like a failure, passive suicidal thoughts(plan and intent denied). Stated she last had thoughts 6 months ago before she started taking Lexapro. No psych admissions reported but added she has been to out patient psychotherapy(E MDR) at the age of 22 for 9 months. Believes therapy was very helpful in the past. Family hx is positive for depression(moth er) and Schizophrenia(m aternal uncle).Client was born in [place], [place] and grew in that area until the age of 13. Moved and lived in this area from the ages of 13 to 19. Moved to [place] to attend college and returned to this area afte college. Described childhood as unstable and disrupted by parent's divorce when she was 13 years old. Client added that she was an introvert and an only child. Noted that parents due to mother having had an affair and being emotionally unstable. Relationship with mother is close in spite of how mother treated her growing up. Relationship with father has gotten better the older father has become. 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 02/19/2024 Other Client participated in individual psychotherapy related to hx of anxiety and depression. Based on today's session continued psychotherapy is recommended with no changes to treatment plan. Client presented to session well groomed and fully oriented with no risk of harm to self or others. Client verbal and engaged through out session. Reported upon presentation that she has been better and has felt extremely stressed and burnt out . Spoke about how she had to help mother with her finances and paid her property taxes. Moreover had to spend some money on her basement due to shoes hand sewer backing into her basement. Admitted that she has felt overwhelmed since last seen on 01.28.2024. Session accordingly focused on helping client explore expectations she has of self and beliefs surrounding asking for help when needed. Conceded that she does not like asking for help. Client receptive to session feedback. Next session in three weeks. 27 year old single never female seen today for initial assessment to start therapy. Client has seen Dr Albright twice for medication therapy. Noted that she has a hx of anxiety and was recently diagnosed with Autism and ADHD. Believes she has suffered from anxiety for as long as she can recall but diagnosed at the age of 19. Client when asked what she worries the most about stated; my future in general, will I be able to work in this economy, and my health . Hx of panic attacks denied by client who stated that she also has a hx of mild recurrent depression which she believes is a result of anxiety and Autism. Noted that she has a hx of meltdowns during which time she hits self. Depression symptoms include; lack of motivation to do things, feeling like a failure, passive suicidal thoughts(plan and intent denied). Stated she last had thoughts 6 months ago before she started taking Lexapro. No psych admissions reported but added she has been to out patient psychotherapy(E MDR) at the age of 22 for 9 months. Believes therapy was very helpful in the past. Family hx is positive for depression(moth er) and Schizophrenia(m aternal uncle).Client was born in [place], [place] and grew in that area until the age of 13. Moved and lived in this area from the ages of 13 to 19. Moved to [place] to attend college and returned to this area afte college. Described childhood as unstable and disrupted by parent's divorce when she was 13 years old. Client added that she was an introvert and an only child. Noted that parents due to mother having had an affair and being emotionally unstable. Relationship with mother is close in spite of how mother treated her growing up. Relationship with father has gotten better the older father has become. 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 03/13/2024 Other Client participated in individual psychotherapy(C BT) related to her hx of anxiety OCD and depression. Based on today's session continued psychotherapy is recommended with no changes to treatment plan. Client presented to session well groomed and fully oriented with no risk of harm to self or others. Client verbal and engage through out session wiyth appropriate mood and affect. Reported upon presentation that she is a walking zombie today as a result of pulling an all nighter last night. Noted that partner's parents arrived last night for a visit and she took Adderall later then she normally does. Expressed concern about how well Adderall is working and has been thinking she may need to try another medication. She was encouraged to schedule an appointment with her provider sooner then scheduled appointment. Session addressed client's relationship with mother and how it has impacted and supported her anxiety and depression. Conceded that she needs to do a better job of setting boundaries with mother and other people in her life. Next session in three weeks. 27 year old single never female seen today for initial assessment to start therapy. Client has seen Dr Albright twice for medication therapy. Noted that she has a hx of anxiety and was recently diagnosed with Autism and ADHD. Believes she has suffered from anxiety for as long as she can recall but diagnosed at the age of 19. Client when asked what she worries the most about stated; my future in general, will I be able to work in this economy, and my health . Hx of panic attacks denied by client who stated that she also has a hx of mild recurrent depression which she believes is a result of anxiety and Autism. Noted that she has a hx of meltdowns during which time she hits self. Depression symptoms include; lack of motivation to do things, feeling like a failure, passive suicidal thoughts(plan and intent denied). Stated she last had thoughts 6 months ago before she started taking Lexapro. No psych admissions reported but added she has been to out patient psychotherapy(E MDR) at the age of 22 for 9 months. Believes therapy was very helpful in the past. Family hx is positive for depression(moth er) and Schizophrenia(m aternal uncle).Client was born in [place], [place] and grew in that area until the age of 13. Moved and lived in this area from the ages of 13 to 19. Moved to [place] to attend college and returned to this area afte college. Described childhood as unstable and disrupted by parent's divorce when she was 13 years old. Client added that she was an introvert and an only child. Noted that parents due to mother having had an affair and being emotionally unstable. Relationship with mother is close in spite of how mother treated her growing up. Relationship with father has gotten better the older father has become. 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 04/03/2024 Other Client participated in individual psychotherapy(C BT/Supportive) related to their hx of anxiety and depresson. Based on today's session continued psychotherapy is recommended with no changes to treatment plan. Client presented to session well groomed and fully oriented with no risk of harm to self or others. Client verbal and engaged through out session. Reported upon presentation that she has been pretty stressed since last seen on 03.13.2024. Stressed today due to mother being depossed as result of lawsuit brought against her by client's neighbor. Admitted that there is nothing she can do for mother. Big source of her stress continues to be fiances as partner quit job after only two weeks but starts another job this coming Sunday. Noted that she and partner had a good visit with partner's parents and is looking forward to them coming back soon. Client provided supportive therapy with her being receptive to feedback and encouragement. Next session in two weeks. 27 year old single never female seen today for initial assessment to start therapy. Client has seen Dr Albright twice for medication therapy. Noted that she has a hx of anxiety and was recently diagnosed with Autism and ADHD. Believes she has suffered from anxiety for as long as she can recall but diagnosed at the age of 19. Client when asked what she worries the most about stated; my future in general, will I be able to work in this economy, and my health . Hx of panic attacks denied by client who stated that she also has a hx of mild recurrent depression which she believes is a result of anxiety and Autism. Noted that she has a hx of meltdowns during which time she hits self. Depression symptoms include; lack of motivation to do things, feeling like a failure, passive suicidal thoughts(plan and intent denied). Stated she last had thoughts 6 months ago before she started taking Lexapro. No psych admissions reported but added she has been to out patient psychotherapy(E MDR) at the age of 22 for 9 months. Believes therapy was very helpful in the past. Family hx is positive for depression(moth er) and Schizophrenia(m aternal uncle).Client was born in [place], [place] and grew in that area until the age of 13. Moved and lived in this area from the ages of 13 to 19. Moved to [place] to attend college and returned to this area afte college. Described childhood as unstable and disrupted by parent's divorce when she was 13 years old. Client added that she was an introvert and an only child. Noted that parents due to mother having had an affair and being emotionally unstable. Relationship with mother is close in spite of how mother treated her growing up. Relationship with father has gotten better the older father has become. 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 08/26/2024 Other Clinical Notes : Client participated in individual psychotherapy(C BT/Supportive) related to their hx of anxiety and depresson via telehealth due to inclement weather. Based on today's session continued psychotherapy is recommended with no changes to treatment plan. Client presented to session well groomed and fully oriented with no risk of harm to self or others. Client verbal and engaged through out session. Reported upon presentation that she has been doing all right since last seen on 04.03.2024. Noted that she had a change in healthy insurance as reason for the long lapse in sessions. Added that job while going okay has been stressed due to limited say and control in working with the population that she does. Focus of session per her request on the current political climate due to new president. Client expressed concern and worry for partner and her family who are from [place]. Stated partner's father was recently a passenger in a car that was pulled over and he was asked for his papers. Client encourage to focus of what she can control and maybe contacting her local politicans. Next session in four weeks. 27 year old single never female seen today for initial assessment to start therapy. Client has seen Dr Albright twice for medication therapy. Noted that she has a hx of anxiety and was recently diagnosed with Autism and ADHD. Believes she has suffered from anxiety for as long as she can recall but diagnosed at the age of 19. Client when asked what she worries the most about stated; my future in general, will I be able to work in this economy, and my health . Hx of panic attacks denied by client who stated that she also has a hx of mild recurrent depression which she believes is a result of anxiety and Autism. Noted that she has a hx of meltdowns during which time she hits self. Depression symptoms include; lack of motivation to do things, feeling like a failure, passive suicidal thoughts(plan and intent denied). Stated she last had thoughts 6 months ago before she started taking Lexapro. No psych admissions reported but added she has been to out patient psychotherapy(E MDR) at the age of 22 for 9 months. Believes therapy was very helpful in the past. Family hx is positive for depression(moth er) and Schizophrenia(m aternal uncle).Client was born in [place], [place] and grew in that area until the age of 13. Moved and lived in this area from the ages of 13 to 19. Moved to [place] to attend college and returned to this area afte college. Described childhood as unstable and disrupted by parent's divorce when she was 13 years old. Client added that she was an introvert and an only child. Noted that parents due to mother having had an affair and being emotionally unstable. Relationship with mother is close in spite of how mother treated her growing up. Relationship with father has gotten better the older father has become. 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 10/06/2024 Other Overall stable, cont current medications. Refills sent in today. Patient educated on all medications including potential benefits, side effects, risks. Educated on proper dosing schedule and importance of compliance. [place] PDMP report checked and consistent with prescription history, no controlled substance prescriptions from other providers. Previous notes from Dr Albright reviewed. -Assessment and treatment plan reviewed with patient. -Compliance with treatment plan importance discussed. -Discussed the risks/benefits of this medication -Discussed medication side effects. -Contact office if symptoms worsen. -Discussed that it can take up to 6-8 weeks to see full therapeutic effects of psychotropic medications. -Crisis prevention hotline 838. Plan Of Treatment Next Appt Details Provider Name:Yuki Bernal, 01/02/2025 01:00:00 PM, [address] [facility] [address] [address], [facility] [address], [place], [address], Insurance Providers Payer Name Payer Address Payer Phone Subscriber Number Group Number Insured Name Patient Relationship to Insured Coverage Start Date Coverage End Date Gw-Cign a - [employer] - [employer] Ppo [address] [place], [place] [phone] [id number] ZAIRE HADDAD Self - patient is the insured 4 [place] [address] [place] [address] [id number] SILVER, ZAIRE Self - patient is the insured 5 Medical (General) History Medical History History ICD Code Problems: Attention deficit hyperactivit y disorder Attention deficit hyperactivity disorder , predominantly inattentive type Autism spectrum disorder Jackie-Danlos syndrome Obsessive-compulsive disorder , Past Psychiatric History: Anxiety Disord er,Phobias undefined abdominal aortic aneurysm: No atrial fibrillation: No chronic fatigue syndrome: No essential tremor: No hyperlipidemia: No hypertension: No Parkinson's disease: No restless leg syndrome: No stroke: No subdural hematoma: No type 1 diabetes mellitus: No type 2 diabetes mellitus: No vitamin B12 deficiency: No vitamin D deficiency: No Surgical History Surgery Date(Month/Year) Other 11/10/2018
--- OUTSIDE RECORDS SUMMARY | 2024-10-17 08:32 | XMS_ITS | Data Portability ---
Author Organization [place] - [facility] - [facility], [facility], [facility] Address [address] [place] [address] Assessment Encounter Date Assessment Date Assessment LastModified by Organization Details LastModified Time 02/09/2021 02/09/2021 Tachycardia [email or web address] Not available 12:30:43 Plan of Treatment Reminders Order Date Submit Date Provider Last Modified By Organization Details Last Modified Time Details Appointments None record ed. Lab TSH, serum or plasma 2021 [employer], [address], [address], [place], [address], 01:15:55 CMP, serum or plasma 2021 [employer], [address], [address], [place], [address], 01:15:56 CBC w/ auto diff 2021 [employer], [address], [address], [place], [address], 01:15:54 Referral neurol ogist referr al 2021 [facility] (New Referrals), [address], [place], [address], 12:30:56 psychi atrist referr al 2021 022 Katey Fernando MD, [address], [address], [place], [address], 21:35:44 dermat ologis t referr al 2020 021 [facility], [address] [place], [address], 07:40:28 Procedures tilt table study (PROC) 2020 021 [facility] (Radiology), [address], [place], [address], 12:55:56 trans- thorac ic echoca rdiogr am (TTE) (PROC) 2020 021 [email or web address] [facility] (Radiology), [address], [place], [address], 18:18:02 holter monito r placem ent (PROC) 2020 021 [email or web address] Not available 15:37:18 Surgeries None record ed. Imaging electr ocardi ogram 2020 021 acastillojennifer o [facility], [address], [address], [place], [address], 13:18:49 Medication Orders amitri ptylin e 25 mg tablet 2021 022 JAVIER Not available 20:42:50 amitri ptylin e 10 mg tablet 2021 JAVIER Not available 20:42:48 topira mate 50 mg tablet 2021 022 JAVIER Not available 20:42:50 sumatr iptan 50 mg tablet 2021 JAVIER Not available 20:42:51 Patient TargetsNo targets recorded. Patient Instructions Encounter Date Encounter Id Patient Instructions Last Modified By Organization Details Last Modified Time 02/16/2021 [id number] Call for any questions or concerns. F/up as needed but to scheduled CPE/Pap. [email or web address] Not available 02/16/2021 18:10:23 03/16/2021 [id number] Call for any questions or concerns. F/up in 6 months/sooner if needed (labs in 6 months - CBC, CMP, TSH and Lipid). [email or web address] Not available 03/16/2021 11:33:22 03/20/2022 [id number] learning about mood disorders [email or web address] Not available 03/20/2022 20:42:40 schedule labs when convenient F/U prn [email or web address] Not available 03/20/2022 21:00:32 Reason for Referral [employer] Referral for S creening for malignant neoplasm of skin Referring Physician: Jazzmine Summers, Family Medicine, Encounter Date: 02/16/2021 [facility] Referring Physician: Alana [facility], Encounter Date: 03/20/2022 Psychiatrist Referral for De pressive disorder Referring Physician: Alana [facility], Encounter Date: 03/20/2022 Results Created Date Observation Date Name Description Value Unit Range Abnormal Flag Note LastModifiedBy Organization Detail LastModifiedTime 03/23/2003/23/2022 CBC W/ DIFFE RENTI AL, W/ PLATE LET WBC 7.2 k/mm3 4.0 - 11.0 normal Not Available [facility] [address], [address], 03/24/2022 01:15:54 03/23/20 22 03/23/2022 CBC W/ DIFFE RENTI AL, W/ PLATE LET RBC 4.39 m/mm3 3.70 - 5.40 normal Not Available [facility], [address], [address], 03/24/2022 01:15:54 03/23/20 22 03/23/2022 CBC W/ DIFFE RENTI AL, W/ PLATE LET hemoglobin 13.7 g/dL 11.5 - 16.0 normal Not Available [facility], [address], [address], 03/24/2022 01:15:54 03/23/20 22 03/23/2022 CBC W/ DIFFE RENTI AL, W/ PLATE LET hematocrit 41.0 % 35.0 - 48.0 normal Not Available [facility], [address], [address], 03/24/2022 01:15:54 03/23/20 22 03/23/2022 CBC W/ DIFFE RENTI AL, W/ PLATE LET MCV 93.4 fL 78.0 - 100.0 normal Not Available [facility], [address], [address], 03/24/2022 01:15:54 03/23/20 22 03/23/2022 CBC W/ DIFFE RENTI AL, W/ PLATE LET MCH 31.2 pg 27.0 - 34.0 normal Not Available [facility], [address], [address], 03/24/2022 01:15:54 03/23/20 22 03/23/2022 CBC W/ DIFFE RENTI AL, W/ PLATE LET MCHC 33.4 g/dL 31.0 - 37.0 normal Not Available [facility], [address], [address], 03/24/2022 01:15:54 03/23/20 22 03/23/2022 CBC W/ DIFFE RENTI AL, W/ PLATE LET platelet count 243 k/mm3 130 - 450 normal Not Available [employer] [employer], [address], [address], 03/24/2022 01:15:54 03/23/20 22 03/23/2022 CBC W/ DIFFE RENTI AL, W/ PLATE LET RDW(SD) 42.3 fL 38.0 - 49.0 normal Not Available [facility], [address], [address], 03/24/2022 01:15:54 03/23/20 22 03/23/2022 CBC W/ DIFFE RENTI AL, W/ PLATE LET RDW(CV) 12.3 % 11.0 - 15.0 normal Not Available [facility], [address], [address], 03/24/2022 01:15:54 03/23/20 22 03/23/2022 CBC W/ DIFFE RENTI AL, W/ PLATE LET MPV 10.4 fL 7.5 - 14.0 normal Not Available [facility], [address], [address], 03/24/2022 01:15:54 03/23/20 22 03/23/2022 CBC W/ DIFFE RENTI AL, W/ PLATE LET segmented neutrophils 68.8 % Autom ated Diff Not Available [facility], [address], [address], 03/24/2022 01:15:54 03/23/20 22 03/23/2022 CBC W/ DIFFE RENTI AL, W/ PLATE LET lymphocytes 22.0 % Not Available [facility], [address], [address], 03/24/2022 01:15:54 03/23/20 22 03/23/2022 CBC W/ DIFFE RENTI AL, W/ PLATE LET monocytes 7.2 % Not Available [employer], [address], [address], 03/24/2022 01:15:54 03/23/20 22 03/23/2022 CBC W/ DIFFE RENTI AL, W/ PLATE LET eosinophils 1.3 % Not Available [facility], [address], [address], 03/24/2022 01:15:54 03/23/20 22 03/23/2022 CBC W/ DIFFE RENTI AL, W/ PLATE LET basophils 0.3 % Not Available [facility], [address], [address], 03/24/2022 01:15:54 03/23/20 22 03/23/2022 CBC W/ DIFFE RENTI AL, W/ PLATE LET absolute neutrophil 4.94 k/uL 1.60 - 9.30 normal Not Available [facility], [address], [address], 03/24/2022 01:15:54 03/23/20 22 03/23/2022 CBC W/ DIFFE RENTI AL, W/ PLATE LET absolute lymphocyte 1.58 k/uL 0.60 - 5.50 normal Not Available [facility], [address], [address], 03/24/2022 01:15:54 03/23/20 22 03/23/2022 CBC W/ DIFFE RENTI AL, W/ PLATE LET absolute monocyte 0.52 k/uL 0.10 - 1.60 normal Not Available [facility], [address], [address], 03/24/2022 01:15:54 03/23/20 22 03/23/2022 CBC W/ DIFFE RENTI AL, W/ PLATE LET absolute eosinophil 0.09 k/uL 0.00 - 0.70 normal Not Available [facility] [address] [place] [address], [address], 03/24/2022 01:15:54 03/23/20 22 03/23/2022 CBC W/ DIFFE RENTI AL, W/ PLATE LET absolute basophil 0.02 k/uL 0.00 - 0.20 normal Not Available [facility] [address] [place] [address], [address], 03/24/2022 01:15:54 03/23/20 22 03/23/2022 CBC W/ DIFFE RENTI AL, W/ PLATE LET immature granulocytes 0.4 % Not Available [facility] [employer], [address], [address], 03/24/2022 01:15:54 03/23/20 22 03/23/2022 CBC W/ DIFFE RENTI AL, W/ PLATE LET absolute immature granulocytes 0.03 k/uL 0.00 - 0.10 normal Not Available [facility] [address] [place] [address], [address], 03/24/2022 01:15:54 03/23/20 22 03/23/2022 CBC W/ DIFFE RENTI AL, W/ PLATE LET NRBC re, nucleated red blood cell percent 0.0 % 0.0 - 1.0 normal Not Available [facility], [address], [address], 03/24/2022 01:15:54 03/23/20 22 03/23/2022 TSH WITH REFLE X FREE T4 TSH, high sensitivity 1.82 mU/L 0.27 - 4.20 normal Note: New refer ence range effec tive 022. Not Available [facility], [address], [address], 03/24/2022 01:15:55 03/23/20 22 03/23/2022 COMPR EHENS JESSY METAB OLIC PANEL W/EGF R glucose 103 mg/dL 70 - 99 high Gluco se refer ence range refle cts fasti ng state . Not Available [facility], [address], [address], 03/24/2022 01:15:56 03/23/20 22 03/23/2022 COMPR EHENS JESSY METAB OLIC PANEL W/EGF R urea nitrogen (BUN) 7 mg/dL 6 - 19 normal Not Available [facility], [address], [address], 03/24/2022 01:15:56 03/23/20 22 03/23/2022 COMPR EHENS JESSY METAB OLIC PANEL W/EGF R creatinine 0.78 mg/dL 0.60 - 1.40 normal Not Available [facility], [address], [address], 03/24/2022 01:15:56 03/23/20 22 03/23/2022 COMPR EHENS JESSY METAB OLIC PANEL W/EGF R egfrcr CKD-epi 108 mL/mi n/1.7 3m2 >=60 normal eGFRc r calcu lated using the CKD-E PI 2020 equat ion Not Available [facility], [address], [address], 03/24/2022 01:15:56 03/23/20 22 03/23/2022 COMPR EHENS JESSY METAB OLIC PANEL W/EGF R BUN/creatini ne ratio 9.0 10.0 - 28.0 low Not Available [facility], [address], [address], 03/24/2022 01:15:56 03/23/20 22 03/23/2022 COMPR EHENS JESSY METAB OLIC PANEL W/EGF R sodium 140 mmol/ L 135 - 145 normal Not Available [facility] [address] [place] [address], [address], 03/24/2022 01:15:56 03/23/20 22 03/23/2022 COMPR EHENS JESSY METAB OLIC PANEL W/EGF R potassium 3.8 mmol/ L 3.6 - 5.3 normal Not Available [facility] [address] [place] [address], [address], 03/24/2022 01:15:56 03/23/20 22 03/23/2022 COMPR EHENS JESSY METAB OLIC PANEL W/EGF R chloride 106 mmol/ L 98 - 108 normal Not Available [facility] [address] [place] [address], [address], 03/24/2022 01:15:56 03/23/20 22 03/23/2022 COMPR EHENS JESSY METAB OLIC PANEL W/EGF R carbon dioxide (co2) 25 mmol/ L 20 - 31 normal Not Available [facility] [address] [place] [address], [address], 03/24/2022 01:15:56 03/23/20 22 03/23/2022 COMPR EHENS JESSY METAB OLIC PANEL W/EGF R anion gap 9 4 - 18 normal Not Available [facility], [address], [address], 03/24/2022 01:15:56 03/23/20 22 03/23/2022 COMPR EHENS JESSY METAB OLIC PANEL W/EGF R protein, total 6.5 g/dL 6.3 - 8.0 normal Not Available [facility] [address] [place] [address], [address], 03/24/2022 01:15:56 03/23/20 22 03/23/2022 COMPR EHENS JESSY METAB OLIC PANEL W/EGF R albumin 4.5 g/dL 3.8 - 5.1 normal Not Available [facility], [address], [address], 03/24/2022 01:15:56 03/23/20 22 03/23/2022 COMPR EHENS JESSY METAB OLIC PANEL W/EGF R globulin 2.0 g/dL 1.9 - 3.7 normal Not Available [facility], [address], [address], 03/24/2022 01:15:56 03/23/20 22 03/23/2022 COMPR EHENS JESSY METAB OLIC PANEL W/EGF R albumin/glob ulin ratio 2.3 1.0 - 2.5 normal Not Available [facility], [address], [address], 03/24/2022 01:15:56 03/23/20 22 03/23/2022 COMPR EHENS JESSY METAB OLIC PANEL W/EGF R calcium 9.6 mg/dL 8.7 - 10.4 normal Not Available [facility], [address], [address], 03/24/2022 01:15:56 03/23/20 22 03/23/2022 COMPR EHENS JESSY METAB OLIC PANEL W/EGF R alkaline phosphatase 43 IU/L 37 - 127 normal Not Available [facility], [address], [address], 03/24/2022 01:15:56 03/23/20 22 03/23/2022 COMPR EHENS JESSY METAB OLIC PANEL W/EGF R alanine aminotransfe rase 8 IU/L 5 - 46 normal Not Available [facility], [address], [address], 03/24/2022 01:15:56 03/23/20 22 03/23/2022 COMPR EHENS JESSY METAB OLIC PANEL W/EGF R aspartate aminotransfe rase 12 IU/L 11 - 40 normal Not Available [facility] [address] [facility] [address], [place], [address], 03/24/2022 01:15:56 03/23/20 22 03/23/2022 COMPR EHENS JESSY METAB OLIC PANEL W/EGF R bilirubin, total 0.6 mg/dL <=1.3 normal Not Available [facility] [address] [facility] [address], [place], [address], 03/24/2022 01:15:56 02/10/20 21 elect rocar diogr am No observ ation record ed. [email or web address] [facility], [address], [place], [address], 02/09/2021 11:48:30 02/23/20 21 shahriar r monit or No observ ation record ed. [email or web address] [employer] [address], [place], [address], 04/27/2021 12:08:51 02/23/20 21 02/22/2021 US, echoc ardio gram, trans thora cic, compl ete, w/ color flow [facility] Patien t:AMINAH HYMAN TH 8 : [birth year] Sex:Fe male Locati on:[place] P[place] GERALD Cotton MD Physic lamont: Access ion Exam Date/T luis Kobi verdugo Physic lamont PATIEN T AGE AT EXAM [id number] 021 08:13 [facility] GERALD MANZANARES MD 25 years Reason for Exam Tachyc ardia Report [id number] NO PCP [id number] 25 [facility] [address] [facility] a [address] [address] AM Name: AMINAH HADDAD 8A : 1995 Accoun t Number : [id number] Age: 25 yrs Patien t Locati on: PUL Study Date: 2020 07:33 AM Dictat ed By: Gerald Manzanares MD Orderray ng Physic lamont: GERALD MANZANARES y [facility] Physic lamont: NO PCP Height : 66 in Weight : 118 lb BSA: 1.6 m2 BP: 98/58 mmHg HR: 88 Reason For Study: Tachyc ardia Perfor med By: Zaira Sawyer, GEOLOGY TEACHER Interp retati on Summar y This was a normal study. Left Ventri carlos: The left ventri cular size, wall thickn ess and systol ic functi on are normal . Normal diasto lic functi on. Left Atrium : The left atrial size is normal . Right Atrium : The right atrial size is normal . Right Ventri carlos: The right ventri cular size, wall thickn ess and systol ic functi on are normal . Aortic Valve: The aortic valve is trilea flet and struct urally normal . There is no aortic stenos is demons trated . Trace aortic insuff icienc y is presen t. Mitral Valve: The mitral valve is struct urally normal . There is no mitral valve stenos is. There is [facility] Patien t:SILRhianna ERAMINAH 8 : [birth year] Sex:Fe male Locati on:[place] PUL Orderi kartik MANZANARES, GERALD ANGELO MD Physic lamnot: Report no mitral regurg itatio n noted. Tricus pid Valve: The tricus pid valve is struct urally normal . There is trace tricus pid regurg itatio n. Right ventri cular systol ic pressu re is normal . Pulmon ic Valve: The pulmon ic valve is struct urally normal . There is trace pulmon ic valvul ar regurg itatio n presen t. Arteri es: The aortic root is normal size. The ascend ing aorta appear s normal in size. Venous : The IVC is normal in size with an inspir atory collap se of greate r then 50%, sugges ting normal right atrial pressu re. Effusi on: The perica rdium appear s normal with no effusi on presen t. MMode/ 2D Measur ements & Calcul ations RVDd: 2.5 cm LVIDd: 3.6 cm LA dimens ion(2D ): 2.6 cm IVSd: 0.78 cm LVIDs: 2.4 cm EF(Tei ch): 62.0 % LVPWd: 0.93 cm asc Aorta Diam: 2.5 cm LVOT diam: 2.0 cm RA dimens ion: 2.7 cm LAVind ex: 14.2 ml/m2 Dopple r Measur ements & Calcul ations MV E max germain: 93.4 cm/sec MV dec slope: 500.2 cm/sec 2 Lat Peak E' Germain: 20.0 cm/sec MV A max germain: 55.1 cm/sec MV dec time: 0.19 sec MV E/A: 1.7 Ao V2 max: 120.0 cm/sec LV V1 max: 99.7 cm/sec PA V2 max: 93.2 cm/sec Ao max P.8 mmHg PA max P.5 mmHg JOHN(V, D) max veloci ty: 2.5 cm2 TR max germain: 202.8 cm/sec JOHN (V,A) Index: 1.6 cm2/m2 LAT E/E': 4.7 TR max P.5 mmHg Electr onical ly signed by: Gerald Manzanares MD on 2020 01:59 PM Final Dictat ed by: GERALD MANZANARSE MD Dictat ed DT/TM: 2020 01:59 pm MST Signed by: GERALD MANZANARES MD Signed (Elect eligio Signhannah bravo): 2020 01:59 pm MST [address] ology Department [address] [facility], [place], [address], 04/18/2021 18:17:51 02/23/20 21 02/22/2021 US, echoc ardio gram, trans thora cic, compl ete, w/ color flow [facility] Medica [facility] Patiduran t:AMINAH HYMAN 8 : [birth year] Sex:Fe male Locati on:GERALD Godinez MD Physic lamont: Access ion Exam Date/T luis Kobi verdugo Physic lamont BRANDON T AGE AT EXAM [id number] 021 08:13 GERALD HERNANDEZ MD 25 years Reason for Exam Tachyc ardia Report [id number] NO PCP [id number] 25 [facility] est [facility] [place] [address] [place] [address] [address] AM Name: AMINAH HADDAD 8A : 1995 Accoun t Number : [id number] Age: 25 yrs Patiduran t Locati on: PUL Study Date: 2020 07:33 AM Dictat ed By: MD [facility] Physic lamont: GERALD MANZANARES [facility] Physic lamont: NO PCP Height : 66 in Weight : 118 lb BSA: 1.6 m2 BP: 98/58 mmHg HR: 88 Reason For Study: Tachyc ardia Perfor med By: Zaira Sawyer, GEOLOGY TEACHER Interp retati on Summar y This was a normal study. Left Ventri carlos: The left ventri cular size, wall thickn ess and systol ic functi on are normal . Normal diasto lic functi on. Left Atrium : The left atrial size is normal . Right Atrium : The right atrial size is normal . Right Ventri carlos: The right ventri cular size, wall thickn ess and systol ic functi on are normal . Aortic Valve: The aortic valve is trilea flet and struct urally normal . There is no aortic stenos is demons trated . Trace aortic insuff icienc y is presen t. Mitral Valve: The mitral valve is struct urally normal . There is no mitral valve stenos is. There is [facility] est [facility] 8 : [birth year] Sex:Fe male Locati on:[place] PUL Orderray MANZANARES, GERALD ANGELO MD Physic lamont: Report no mitral regurg itatio n noted. Tricus pid Valve: The tricus pid valve is struct urally normal . There is trace tricus pid regurg itatio n. Right ventri cular systol ic pressu re is normal . Pulmon ic Valve: The pulmon ic valve is struct urally normal . There is trace pulmon ic valvul ar regurg itatio n presen t. Arteri es: The aortic root is normal size. The ascend ing aorta appear s normal in size. Venous : The IVC is normal in size with an inspir atory collap se of greate r then 50%, sugges ting normal right atrial pressu re. Effusi on: The perica rdium appear s normal with no effusi on presen t. MMode/ 2D Measur ements & Calcul ations RVDd: 2.5 cm LVIDd: 3.6 cm LA dimens ion(2D ): 2.6 cm IVSd: 0.78 cm LVIDs: 2.4 cm EF(Tei ch): 62.0 % LVPWd: 0.93 cm asc Aorta Diam: 2.5 cm LVOT diam: 2.0 cm RA dimens ion: 2.7 cm LAVind ex: 14.2 ml/m2 Dopple r Measur ements & Calcul ations MV E max germain: 93.4 cm/sec MV dec slope: 500.2 cm/sec 2 Lat Peak E' Germain: 20.0 cm/sec MV A max germain: 55.1 cm/sec MV dec time: 0.19 sec MV E/A: 1.7 Ao V2 max: 120.0 cm/sec LV V1 max: 99.7 cm/sec PA V2 max: 93.2 cm/sec Ao max P.8 mmHg PA max P.5 mmHg JOHN(V, D) max veloci ty: 2.5 cm2 TR max germain: 202.8 cm/sec JOHN (V,A) Index: 1.6 cm2/m2 LAT E/E': 4.7 TR max P.5 mmHg Electr onical ly signed by: Gerald Manzanares MD on 2020 01:59 PM Final Dictat ed by: GERALD MANZANARES MD Dictat ed DT/TM: 2020 01:59 pm MST Signed by: GERALD MANZANARES MD Signed (Elect eligio Signat ure): 2020 01:59 pm MST [facility] ology Department [address], [place], [address], 02/22/2021 17:12:41 Result Notes None recorded. Problems Name Problem SNOMED Code Status Onset Date Resolution Date Notes Provider Name and Address Organization Details Recorded Time Migraine [id number] Active 021 KHADIJAH SAMSONP [address], [place], [address] , [facility], [facility] 09/06/2020 09:55:27 Problem Notes None recorded. Procedures Surgical History Date Name Laterality Status Provider Name and Address Organization Details Recorded Time Date of Last Pap Smear completed Becki Maravilla MA [facility], [facility] 09/02/2021 09:21:57 procedure on radius completed Litzy Rutledge MA [facility], [facility] 08/30/2020 12:40:47 endoscopy completed Litzy Rutledge MA [facility], [facility] 08/30/2020 12:40:52 Imaging Results Imaging Date Name Status LastModified by Organization Details LastModified Time 02/09/2021 electrocardiogram completed [email or web address] [facility], [address], [place], [address], 02/09/2021 11:48:30 02/22/2021 holter monitor completed [employer] [facility] [address], [place], [address], 04/27/2021 12:08:51 02/22/2021 US, echocardiogram, transthoracic, complete, w/ color flow [facility] [address] [facility] [address] [address], [place], [address], 04/18/2021 18:17:51 02/22/2021 US, echocardiogram, transthoracic, complete, w/ color flow [facility] [address], [place], [address], 02/22/2021 17:12:41 Procedure Notes None recorded. Medical Equipment None Reported. Allergies Allergen ID Allergen Name Allergen Category Reaction Reaction Severity Criticality Documentation Date Start Date Code Code System Note Provider Name and Address Organization Details Recorded Time 83647 amoxicill in medicatio n Not available Not available Not available 08/30/2020 723 RxNorm LYNSEY Nieto, [facility] [employer] [facility], [facility] 12:37:32 96512 clarithro mycin medicatio n Not available Not available Not available 08/30/2020 77108 RxNorm LYNSEY Nieto, [facility], [facility] 12:37:59 37743 Substance with sulfonami de structure and antibacte rial mechanism of action (substanc e) medicatio n Not available Not available Not available 08/30/2020 38667 8003 SNOMED LYNSEY Nieto, [facility], [facility] 12:38:17 12009 Flagyl medicatio n Not available Not available Not available 02/16/2021 6 RxNorm LYNSEY Whyte, [facility], [facility] 17:51:11 Medications Name Sig Start Date Stop Date Status Note LastModified by Organization Details LastModified Time sumatriptan 50 mg tablet TAKE 1 TABLET BY MOUTH 1 TIME. MAY REPEAT DOSE IN 2 HOURS NEEDED active Not Available Not Available No t Available amitriptyli ne 50 mg tablet TAKE 1 TABLET BY MOUTH AT BEDTIME 03/20 completed Not Available Not Available Not Available amitriptyli ne 25 mg tablet TAKE ONE TABLET BY MOUTH EVERY NIGHT AT BEDTIME THEN TAPER DOWN TO 10 MG active Not Available Not Available No t Available amitriptyli ne 10 mg tablet 1 tablet PO QHS X 7 days then d/c 2021 active Not Available Not Available Not Avai lable topiramate 50 mg tablet 1 TABLET EVERY NIGHT AT BEDTIME X 7 DAYS FOR MIGRAINE PREVENTIO N. MAY INCREASE TO 2 TABLETS AT BEDTIME - STOP AMITRIPTY LINE PRIOR TO STARTING MED. active Not Available Not Available No t Available Vitals Date Recorded Body height Body mass index (BMI) Body weight Heart rate Systolic blood pressure Diastolic blood pressure Provider Name and Address Organization Details Last Updated DateTime 1 167.64 cm 19.4 kg/m2 23155.0 8 g 107 /min 108 mm[Hg] 67 mm[Hg] Nalini Orozco [facility], [facility] 1 11:47:57 Date Recorded Body height Body mass index (BMI) Body weight Body temperature Heart rate Oxygen saturation Oxygen saturation in Arterial blood by Pulse oximetry Respiratory rate Systolic blood pressure Diastolic blood pressure Provider Name and Address Organization Details Last Updated DateTime 1 167.64 cm 19.2 kg/m2 99677.4 9 g 97.3 [degF] 104 /min 99 % 99 % 18 /min 110 mm[Hg] 66 mm[Hg] Becki bowen [place] - [facility] - [facility], [facility] 1 17:52:44 Date Recorded Body height Body mass index (BMI) Body weight Body temperature Heart rate Oxygen saturation Oxygen saturation in Arterial blood by Pulse oximetry Respiratory rate Systolic blood pressure Diastolic blood pressure Provider Name and Address Organization Details Last Updated DateTime 1 167.64 cm 19.4 kg/m2 55511.5 2 g 97 [degF] 108 /min 100 % 100 % 18 /min 118 mm[Hg] 71 mm[Hg] Becki bowen [place] - [facility] - [facility] [facility], [facility] 1 10:00:34 Date Recorded Body height Body mass index (BMI) Body weight Body temperature Heart rate Oxygen saturation Oxygen saturation in Arterial blood by Pulse oximetry Respiratory rate Systolic blood pressure Diastolic blood pressure Provider Name and Address Organization Details Last Updated DateTime 1 167.64 cm 19.7 kg/m2 78233.9 9 g 98.2 [degF] 94 /min 98 % 98 % 18 /min 122 mm[Hg] 77 mm[Hg] Becki bowen MA [facility], [facility] 1 10:42:05 Date Recorded Body height Body mass index (BMI) Body weight Body temperature Heart rate Oxygen saturation Oxygen saturation in Arterial blood by Pulse oximetry Respiratory rate Systolic blood pressure Diastolic blood pressure Provider Name and Address Organization Details Last Updated DateTime 2 167.64 cm 20.5 kg/m2 90507.2 3 g 97.1 [degF] 83 /min 98 % 98 % 12 /min 113 mm[Hg] 70 mm[Hg] Meryl Tracy MA [facility], [facility] 2 20:16:28 Social History Question Answer Notes LastModified by Organizat ion Details LastModified Time Tobacco Smoking Status Never Smoker Litzy Rutledge MA [facility] [place] [place] [facility], [facility] 08/30/2020 12:42:04 Do You Have An Advance Directive? No Information not available 03/01/2021 What Is Your Level Of Alcohol Consumption? None Information not available 08/30/2020 Are You Blind Or Do You Have Difficulty Seeing? No Information not available 03/01/2021 Are You Currently Employed? Yes Information not available 03/20/2022 Are You Deaf Or Do You Have Serious Difficulty Hearing? No Information not available 03/01/2021 What Type Of Diet Are You Following? REGULAR Information not available 03/01/2021 What Is The Highest Grade Or Level Of School You Have Completed Or The Highest Degree You Have Received? 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 Unknown Information not available 03/20/2022 Do You Have A Medical Power Of Doughnut Machine Operator? No Information not available 03/01/2021 What Was The Date Of Your Most Recent Tobacco Screening? 03/20/2022 Information not available 03/20/2022 Do You Have Any Pets? Yes Information not available 03/20/2022 What Is Your Relationship Status? Domestic Partner Information not available 03/20/2022 Do You Use Your Seat Belt Or Car Seat Routinely? Yes Information not available 03/01/2021 Are You Sexually Active? Yes [email or web address] Information not available 08/30/2020 Do You Have Smoke And Carbon Monoxide Detectors In Your Home? Yes Information not available 03/01/2021 Are You Passively Exposed To Smoke? No Information no t available 03/20/2022 Do You Use Any Illicit Or Recreational Drugs? No Information not available 03/01/2021 Do You Use Sunscreen Routinely? Yes Information not available 03/01/2021 Has Tobacco Cessation Counseling Been Provided? No Information not available 03/01/2021 Have You Recently Traveled Abroad? No Information not available 03/20/2022 Do You Or Have You Ever Used Any Other Forms Of Tobacco Or Nicotine? No Information not available 03/01/2021 Sex: Unknown Functional Status Question Answer Note LastModified by Organization D etails LastModified Time Do you have difficulty walking or climbing stairs? No Information not available 03/01/2021 Do you have difficulty doing errands alone? No Information not available 03/01/2021 Are you able to care for yourself? Yes Information n ot available 03/01/2021 Do you have difficulty dressing or bathing? No Information not available 03/01/2021 Mental Status Question Answer Note LastModified by Organization D etails LastModified Time Do you have difficulty concentrating, remembering or making decisions? No Information no t available 03/01/2021 Family History Relationship Description Onset Age of this Age Resolved Age Notes LastModified by Organization Details LastModified Time Mother Hypertensive disorder [email or web address] Not available 2020 12:41:27 Father Asthma [email or web address] Not available 08/30/2020 12:41:34 Maternal Grandmother Diabetes mellitus [email or web address] Not available 2020 12:41:46 Paternal Grandmother Diabetes mellitus [email or web address] Not available 2020 12:41:46 Medical History Condition Response OTHER Y URINARY/BLADDER/KIDNEY PROBLEMS Y ANEMIA/BLOOD DISORDER Y Gynecological History Statement/Question Response Date of Last Pap Smear 03/16/2021 Age at Menarche 15 Current Control Method None Date of LMP 02/27/2022 Obstetrics History GPAL:G 0 P 0 0 0 0 Immunizations Vaccine Type Date Status Note Provider Nam e and Address Organization Details Recorded Time COVID-19, mRNA, LNP-S, PF, 100 mcg/0.5mL dose or 50 mcg/0.25mL dose 09/21/2020 completed LYNSEY Galvin [facility], [facility] 03/02/2021 09:58:38 COVID-19, mRNA, LNP-S, PF, 100 mcg/0.5mL dose or 50 mcg/0.25mL dose 10/26/2020 completed LYNSEY Galvin [facility], [facility] 03/02/2021 09:58:45 Past Encounters Encounter ID Performer Location Encounter Start Date Encounter Closed Date Diagnosis/Indication Diagnosis SNOMED-CT Code Diagnosis ICD10 Code Diagnosis Note [id number] SPENCER SAMSON [facility] [facility] [address] [place] [address] 09/06/2020 09:09:53 09/06/2020 15:34:55 Migraine 77717351 G43.909 Migraine rojo stable. Continue meds as directed. Call for any increase in frequency/ duration of ROJO.Labs today as ordered. [id number] ROSLYN BELLE APN [facility] [place] [address] 01/20/2021 12:36:33 01/20/2021 13:14:48 Tachycardia 1687573 R00.0 BP 109/73, HR 106 at rest in office. Appreciate cardiology consult Low blood pressure 06583 003 I95.9 I encouraged she consume more salty foods and ensure she is drinking 2 liters of water per day, change positions slowly to avoid worsening dizziness [id number] Gerald Manzanares MD [facility], [address] [place] [address] 02/09/2021 11:29:25 02/09/2021 13:18:49 Tachycardia 7314919 R00.0 The patient has been diagnosed with possible pots in the past. We will help to confirm this diagnosis utilizing a combinatio n of cardiac evaluation s including a tilt table test, and echocardio gram to rule out structural cardiac abnormalit ies as well as Holter monitor to rule out significan t arrhythmia s. Should the patient have POTS conservati ve measures including adequate fluid and sodium intake, possible compressio n stockings as well as physical conditioni ng would be indicated. Should the tilt table demonstrat e a particular type of POTS considerat ion to medical therapy including beta-block ers can be given. [id number] SPENCER SAMSON_[address] [address] 02/16/2021 17:41:17 02/16/2021 18:37:02 Screening for malignant neoplasm of skin 077104196 Z12.83 Referral to derm provided for skin ca screen. Eczema 42416205 L30.9 Eczema discussed. May use hydrocorti soneo prn OTC and use moisuturiz ing cream ceruve to face BID. [id number] SPECNER SAMSON_[address] [facility] [address] [place] [address] 03/02/2021 09:51:30 03/09/2021 16:35:44 [id number] SPENCER SAMSON_[address] [address] 03/16/2021 10:30:46 03/16/2021 11:35:42 Adult health examination 889462653 Z00.00 Anticipato ry guidance provided.H ealthy diet/exere cise advised. Screening for malignant neoplasm of cervix 771368024 Z12.4 Pap completed but not sure if cx acceptable - will send for Pap/HPV. [id number] ALANA SAMMI, CARPET SEWER [facility] [place] [address] 03/20/2022 20:01:08 03/20/2022 21:03:08 Migraine 27707194 G43.909 Patient advised we will taper her off amytriptyl ine and start on topiramate Patient advised amitriptyl ine can cause tachycardi a, and heat intoleranc e. Besides not effective, she will try topiramate . Consider neuro evaluation in [place]. Depressive disorder 3548 9007 F32.A Diabetes m ellitus screening 851628250 Z13.1 Anemia screening 0973304 07 Z13.0 Thyroid di sorder screening 317077692 Z13.29 Health Concerns Section Related Observation LastModified by Organization Detai ls LastModified Time None Recorded Concern Status LastModified by Organization Details LastModified Time None Recorded Advance Directives Directive N: Payers Encounter Date Sequence Insurance Name Policy Number Policy Yadav Covered Member ID Yadav Member ID Guarantor Name 02/09/2021 1 [place] Dandy Silver [id number] Millicent Silver 02/16/2021 1 [place] Dandy Silver [id number] Millicent Silver 03/02/2021 1 [place] Dandy Silver [id number] Millicent Silver 03/16/2021 1 [place] Dandy Silver [id number] Millicent Silver 03/20/2022 1 [place] [id number] Millicent Silver [id number] Millicent Silver Notes Date Note Type Note Provider Name and Address Organization Details Recorded Time 02/09/2021 text/html The patient is a 25-year-old female with a 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 At that time the patient underwent a work-up including a tilt table which was said to show some abnormalities and was recommended the patient be treated conservatively for her symptoms. At the current time the patient continues to experience symptoms of a rapid heart rate with standing with a pulse of approximately 120 bpm and occasional episodes of lightheadedness with no syncope or near syncope. Her symptoms are exacerbated by being outdoors in the [facility]. She is not aerobically active however is quite active riding horses as well as performing other chores without chest discomfort, shortness of breath or other cardiac symptoms. At times patient does note cool feet and hands this can be accompanied by pallor with no cyanosis or hypererythema. An EKG today demonstrates sinus tachycardia with possible right-sided chamber enlargement and nonspecific ST segment changes. Gerald Manzanares MD [address] [facility] [address] [place], [address], [facility] [employer] [facility], [facility] 02/09/2021 12:32:21 02/16/2021 text/html Millicent present s today for concern of rash to her eyelids and lesion to her R forearm; she reports she used OTC hydrocortisone cream and had resolution with this; she has had this intermittent dry red scaly rash and gets itching. She denies any rash presently. She also reports mole to her R forewarm and denies any changes but states different than others. She does use sunscreen and denies any hx of skin cancer. SPENCER SAMSON [address] [facility] [address], [place], [address], [facility] [employer] [facility], [facility] 02/16/2021 18:10:45 03/02/2021 text/html NOT seen appt rescheduled SPENCER SAMSON [address] [facility] [address], [place], [address], [facility] [employer] [facility], [facility] 03/09/2021 16:35:43 03/16/2021 text/html Millicent present s today for CPE/Pap; she has a known hx of migraine rojo and EDS; she is taking her medications as directed and her migraine rojo are stable; she has had both covid19 vaccines. HM, Adult Female: The patient is being seen for a health maintenance evaluation. General Health: The patient s health since the last visit is described as good. She has regular dental visits. She denies vision problems. She denies hearing loss. Immunizations status: up to date. Lifestyle:. She consumes a diverse and healthy diet. She does not have any weight concerns. She exercises regularly. She does not use tobacco. She denies alcohol use. She denies drug use. Reproductive health: the patient is premenopausal . she reports normal menses. Screening: cancer screening reviewed and current. Metabolic screening reviewed and current. Risk screening reviewed and current. JAZZMINE SUMMERS, SPENCER [address] [facility] [address], [place], [address], [facility] [employer] [facility], [facility] 03/16/2021 11:34:11 03/20/2022 text/html Patient presents to medical today for evaluation. Patient history of Migraine w/o auras, currently on prevention and currently on amitriptyline 50 mg with good results. She reports getting 3 ROJO per week, symptoms worse with lack of sleep, menses, and other triggers. She has sumatriptan for acute ROJO> Migraines started at 9 years of age. [facility] age 19, dx jackie danlos syndrome. ALANA FLOYD, SPENCER [address] [facility] [address], [place], [address], [facility] [employer] [facility], [facility] 03/20/2022 21:00:59 OBGyn Episode No OBEpisode recorded.
--- OUTSIDE RECORDS SUMMARY | 2024-10-17 08:32 | XMS_ITS ---
Author Organization [facility] Address [address] [facility] [address] [place] [address] Care Team Providers Care Tool And Die Technician Name Role Phone Jasmin NICHOLE, [facility] Primary Care Provider Unavaila [place] Unavailable [phone] Yuki Bernal Unavailable [phone] Allergies Allergen (clinical drug ingredient) Drug/Non Drug Allergy documented on EMR Reaction Allergy Type Onset Date Status Substance with sulfonamide structure and antibacterial mechanism of action (substance) SULFA (SULFONAMIDE ANTIBIOTICS) (uncoded) Unknown Allergy 11/08/2023 Active REASON FOR VISIT Needed 45 mins for Jose Ramon transfer Medications Medication SIG (Take, Route, Frequency, Duration) Notes Start Date End Date Status SUMAtriptan Succinate 50 MG Oral 11/08/2023 Active MAGNESIUM 250 MG ( MAGNESIUM OXIDE) TABLET *Reorder from [facility] for eRx and Interaction Alerts* 11/08/2023 Active hydrOXYzine HCl 25 MG Oral 11/08/2023 Active Ondansetron 4 MG 1 tablet on the tongue and allow to dissolve Orally Once a day for 30 days Active Escitalopram Oxalate 10 MG TAKE 1 TABLET BY MOUTH EVERY DAY for 90 days note decreased dose Active Amitriptyline HCl 25 MG 0.5 -1 tablet every night Orally Once a day for 30 days 02/27/2024 Active Amphetamine-Dextroamp hetamine 5 MG 1 tablet Oral Twice a day for 30 days 02/27/2024 Active Social History Sex Assigned At : Social History Observation Description Sex Assigned At Female Encounters Encounter Location Date Provider Diagnosis [facility] [address] [facility] [address] [place] [address] 09/25/2024 Yuki Bernal Plan Of Treatment Next Appt Details Provider Name:Yuki Bernal, 01/02/2025 01:00:00 PM, [address] [facility] [address], [facility] [address], [place], [address], Progress Notes * AMINAH HADDADTH CDOB:1995 (28 yo F)Acc No.[id number]:09/25/2024 Patient: ZAIRE POWELL Provider: KAUSHIK SIDDIQUI :1995 A ge:28 Y S ex:Female Date:09/25/2024 Address:[address] [place], [place] [address] Pcp:Nguyễn Castellanos MD Subjective: * Chief Complaints: * 1 . Needed 45 mins for Jose Ramon transfer. * Medical History: P roblems: Attention deficit hyperactivity disorder, Attention deficit hyperactivity disorder, predominantly inattentive type, Autism spectrum disorder, Jackie- Danlos syndrome, Obsessive-compulsive disorder, ,, Past Psychiatric History: Anxiety Disorder,Phobias, abdominal aortic aneurysm: No, atrial fibrillation: No, chronic fatigue syndrome: No, essential tremor: No, hyperlipidemia: No, hypertension: No, Parkinson's disease: No, restless leg syndrome: No, stroke: No, subdural hematoma: No, type 1 diabetes mellitus: No, type 2 diabetes mellitus: No, vitamin B12 deficiency: No, vitamin D deficiency: No. * Medications: T aking SUMAtriptan Succinate 50 MG Tablet Oral , Taking MAGNESIUM 250 MG ( MAGNESIUM OXIDE) TABLET , Notes to Pharmacist: *Reorder from [facility] for eRx and Interaction Alerts*, Taking hydrOXYzine HCl 25 MG Tablet Oral , Taking Amitriptyline HCl 25 MG Tablet 0.5 -1 tablet every night Orally Once a day , Taking Amphetamine-Dextroamphetamine 5 MG Tablet 1 tablet Oral Twice a day , Taking Ondansetron 4 MG Tablet Disintegrating 1 tablet on the tongue and allow to dissolve Orally Once a day , Taking Escitalopram Oxalate 10 MG Tablet TAKE 1 TABLET BY MOUTH EVERY DAY , Notes to Pharmacist: note decreased dose, Notes: pt c/o adverse side efx at 20 mg dose, tolerating 10 mg dose without adverse effects * Allergies: S ULFA (SULFONAMIDE ANTIBIOTICS): Allergy - Onset Date 11/08/2023. Objective: * Vitals: Assessment: Plan: * Treatment: * Billing Information: * Visit Code: * Procedure Codes: * Electronic signature of KAUSHIK Noonan on 10/17/2024 at 08:31 AM CDT Sign off status: Pending * Provider: KAUSHIK SIDDIQUI Date: 0 09/25/2024 Generated for Zaire Lamb/Sandra on: 0 10/17/2024 08:31 AM CDT
--- OUTSIDE RECORDS SUMMARY | 2024-10-17 08:32 | XMS_ITS | Data Portability ---
Author Organization [place] [facility] [place], [id number]: MAIN Address [address] [place] [address] Care Team Providers Care Kiln Mechanic Name Role Phone JOIE HUTSON Primary Care Provider Unavailabl e Assessment No assessment recorded. Plan of Treatment Reminders Order Date Submit Date Provider Last Modified By Organization Details Last Modified Time Details Appointments None record ed. Lab None record ed. Referral None record ed. Procedures None record ed. Surgeries None record ed. Imaging None record ed. Medication Orders None record ed. Patient TargetsNo targets recorded. Patient InstructionsNo instructions recorded. Reason for Referral None Reported. Procedures Surgical History Date Name Laterality Status Provider Name and Address Organization Details Recorded Time 07/09/2015 endoscopy completed Sonia Regan [place] [facility] [place] 09/02/2019 15:25:27 Imaging Results None recorded. Procedure Notes None recorded. Medical Equipment None Reported. Allergies Allergen ID Allergen Name Allergen Category Reaction Reaction Severity Criticality Documentation Date Start Date Code Code System Note Provider Name and Address Organization Details Recorded Time 39224 Substance with sulfonami de structure and antibacte rial mechanism of action (substanc e) medicatio n Not available Not available Not available 09/02/2019 89727 8003 SNOMED Sonia mendieta, [place] [facility] [place] 0 15:21:23 59619 amoxicill in medicatio n Not available Not available Not available 09/02/2019 723 RxNorm Sonia Regan null, [place] [facility] [place] 0 15:21:35 33491 metronida zole medicatio n Not available Not available Not available 09/02/2019 6922 RxNorm Sonia mendieta, [place] [facility] [place] 0 15:21:45 67273 animal dander environme nt Not available Not available Not available 09/02/2019 77938 UNK Sonia mendieta, [place] [facility] 0 15:22:04 Medications Name Sig Start Date Stop Date Status Note LastModified by Organization Details LastModified Time sumatriptan active Not Available Not A vailable Not Available amitriptyline active Not Available Not Available Not Available Vitals None Recorded Social History Question Answer Notes LastModified by Organizat ion Details LastModified Time Tobacco Smoking Status Never Smoker Sonia mendieta, [place] [facility] 09/02/2019 15:24:11 What Is Your Level Of Alcohol Consumption? None Information not available 09/02/2019 Is Blood Transfusion Acceptable In An Emergency? 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 Mental Status None recorded. Family History Relationship Description Onset Age of this Age Resolved Age Notes LastModified by Organization Details LastModified Time Maternal Uncle Familial malignant neoplasm of pancreas Not available 2019 15:37:18 Maternal Uncle Family history of cancer of colon Not available 2019 15:37:23 Unspecified Relation Family history of Hypertension Not available 15:23:41 Unspecified Relation Familial hypercholest erolemia Not available 2019 15:23:53 Father Family history of malignant neoplasm of kidney Not available 2019 15:37:32 Medical History Condition Response Psych- Anxiety Disorder Y Ortho-Other Y GI- Reflux/Ulcers Y Neurology- Headaches/Migraines Y Gynecological History Statement/Question Response HPV Vaccine N History of Abnormal PAP N Date of LMP 08/09/2019 Obstetrics History GPAL:G 0 P 0 0 0 0 Past Encounters Encounter ID Performer Location Encounter Start Date Encounter Closed Date Diagnosis/Indication Diagnosis SNOMED-CT Code Diagnosis ICD10 Code Diagnosis Note [id number] WENDY DIEGO MD [id number]: [address] [place] [address] 09/02/2019 14:55:35 09/02/2019 16:07:41 Gynecologic examination 61420282 Z01.419 Screening for malignant neoplasm of cervix 954504224 Z12.4 Venereal d isease screening 520463161 Z11.3 Health Concerns Section Related Observation LastModified by Organization Detai ls LastModified Time None Recorded Concern Status LastModified by Organization Details LastModified Time None Recorded Advance Directives Directive None Recorded Payers Encounter Date Sequence Insurance Name Policy Number Policy Yadav Covered Member ID Yadav Member ID Guarantor Name 09/02/2019 1 [place] [id number] Dandy Herrera [id number] Millicent Herrera Notes Date Note Type Note Provider Name and Address Organization Details Recorded Time 09/02/2019 text/html Annual Woman's Exam (GEN)Reported bypatient.Current Medical History:no active medical problems Relevant Family History:family history of colon cancer; no family history of breast cancer; no family history of ovarian cancer; no family history of uterine cancer; no family history of blood clots/DVT Menstrual History:Frequency of Menses: monthly; Duration of Flow: 4 days; Quantity of Flow: moderate Contraceptive Method:nothing; satisfied Sexually Active:Yes: same partner STI Screen:desires Health/Prevention :Tobacco Use: no Mammogram:not applicable Pap Smear +/- HPV Cotesting:due Thyroid/Lipid Screening:due Colonoscopy:not applicable Patient has:Primary Care Physician: yesNotes:same sex relationship. has never had penile entry. she states a lot of pain when finger entry or tampon entry , or sex toys. WENDY DIEGO MD [address], [address], [place] [facility] [place] 09/02/2019 15:53:30 OBGyn Episode No OBEpisode recorded.
== END 2024-10-17 08:22 | disposition home or self-care (01) ==
PROVIDERS: PCP Internal Medicine; Visit Provider Internal Medicine
DX: R10.11 Right upper quadrant pain (principal)
CPT/HCPCS: 76705